=== PATIENT | male | born 1940 | race African-American/Black ===

== ENCOUNTER 2023-08-03 15:44 | Inpatient (IN) | payer MEDICARE, OTHER, SELFPAY ==
--- NOTE | 2023-08-03 13:42 | ED.GENMED ---
History of Present Illness
General
Chief Complaint: Chest Problem
Source: patient
Exam Limitations: altered mental status and dementia
Time Seen by Provider: 08/03/23 13:25
Nursing documentation reviewed up to this point in time: agreed with
Travel History
Have you had any contact with someone who has COVID-19?: No
Do you have any symptoms of coronavirus? Fever > 100 degrees, chills, cough, shortness of breath, sore throat, loss of taste or smell, muscle aches, or headache?: No
History of Present Illness
History of Present Illness:
83-year-old male [facility] presents with fatigue slow heart rate onset unclear, he has a pacemaker, concerned that he has heart block, patient is unsure what his pacemaker was placed, states he feels short of breath states he has chest pain
for the past year denies passing out
Past History
Past History
ED Past Medical History: CAD, Hypercholesterolemia, Psychiatric (Depression, Schizo affective disorder) and Other (Chronic pain, Alzehimers, UTi, COVID)
ED Past Surgical History: Cardiac (Pacemaker)
Social History
Tobacco: Non-smoker
Alcohol: None
Drug: None
Living: [facility] ([place])
Employment: Not employed
Review of Systems
Review of Systems
All Other Systems: Not applicable
Constitutional: Reports fatigue; Denies fever
Respiratory: Reports trouble breathing; Denies cough
Cardiac: Reports chest pain; Denies syncope
ABD/GI: Reports no symptoms
: Reports no symptoms
Neurological: Reports weakness
Hematologic/Lymphatic: Reports no symptoms
Phy Exam
Physical Exam
Physical Exam:
Physical Exam
General: Pleasant demented elderly male
Neck: Lips are slightly dry
Heart: Regular pacer pack in the anterior chest wall
Lungs: no acute respiratory distress. clear bilaterally
Abdomen: Nontender
Neuro: Oriented to person globally weak moves all extremity
Skin: no rash
Psychiatric: Calm cooperative
Extremities: no edema.
Course
Orders/Labs/Results
Orders:
Orders
08/03/23 13:25
EKG [Electrocardiogram (*1)] Urgent
Reason for Study: Chest Pain
EKG- Treatment ONCE
08/03/23 13:27
Electrocardiogram (*1) Stat
Reason for Study: Other
Other Reason for Exam: chest pain
Cardiac Monitoring- Treatment ONCE
EKG- Treatment ONCE
CR Chest Portable - 1 View Urgent
Comment:
Reason For Exam: weakness hr 39
Reason Study Needs to be Portable: Unable to Transport
08/03/23 13:48
Complete Blood Count/With Diff Urgent
Comprehensive Metabolic Panel Urgent
Magnesium Urgent
PTT Urgent
Prothrombin Time Urgent
TSH Urgent
Troponin I Urgent
08/03/23 14:16
CARDIOLOGY CONSULT Urgent
Consulting Provider: Donald Soni
Was physician already notified: Yes
NSS 1000mL Bolus WIDE OPEN 0.9% Sodium Chloride 1000 ml [Nss] 1,000 ml IV BOLUS
Abnormal Lab Results
08/03/23
13:48
RBC 3.74 L 10^6/uL
(4.70-6.10)
Hgb 10.5 L g/dL
(13.0-18.0)
Hct 30.6 L %
(39.0-52.0)
RDW 15.1 H %
(11.5-14.5)
Abs Immat Gran (auto) 0.1 H 10^3/uL
(0-0.05)
Absolute Neuts (auto) 8.2 H 10^3/uL
(1.4-6.5)
Absolute Lymphs (auto) 1.1 L 10^3/uL
(1.2-3.4)
Absolute Monos (auto) 0.9 H 10^3/uL
(0.1-0.6)
Immature Gran % 0.6 H %
(0-0.5)
Neutrophils % 79.9 H %
(42.2-75.2)
Lymphocytes % 10.5 L %
(20.5-51.1)
BUN 37 H mg/dl
(9-20)
Creatinine 1.9 H mg/dL
(0.7-1.3)
Glucose 105 H mg/dl
(70-99)
Magnesium 2.7 H mg/dl
(1.6-2.3)
Alkaline Phosphatase 132 H U/L
(38-126)
Albumin 3.3 L g/dl
(3.5-5.0)
08/03/23 13:48
08/03/23 13:48
Vital Signs
Initial and Last Documented VS:
Initial Vital Signs
Temp Pulse Resp Pulse Ox
98.1 F 41 16 95
08/03/23 13:26 08/03/23 13:26 08/03/23 13:26 08/03/23 13:26
Last Documented Vital Signs
Temp Pulse Resp BP Pulse Ox
98.1 F 40 20 117/41 96
08/03/23 13:26 08/03/23 13:45 08/03/23 13:45 08/03/23 14:00 08/03/23 13:45
MDM/Problems Addressed
Differential Diagnosis Includes:
Dehydration pacemaker failure occult infection
MDM/Problems Addressed:
Fatigue
Chronic conditions affecting care: Cardiomyopathy, Arrhythmia and Psychiatric illness
Acute Exacerbation and/or Progression of Chronic Illness: Cardiomyopathy, Arrhythmia and Psychiatric illness
*Radiology
Radiology exam reviewed: radiology read reviewed
*Pulse Oximetry
Patient hypoxic: no
*EKG
Interpreted by ED Provider?: Yes
Interpretation: abnormal
Comparison EKG: no comparison EKG present
Heart Rate: 40
Rate: bradycardiac
Ischemia: non-specific ST changes
*Electromechanical Assembly Technician Interpretation
Rate: bradycardiac
Interpretation: abnormal
Heart Rate: 42
Rhythm: other
*Critical Care Note
Total Time (30-74mins, 75-104mins- exclusive of procedures): 15
Data Reviewed
Review of Other/Old Records Reveals: Labs and Discharge Summary
Source: patient and ambulance crew
Prescriptions/Medications Considered But Not Given:
Atropine
Update Note
Update Note:
Patient with multiple vague complaints including fatigue and weakness looks to be heart block reviewed with EP cardiology concern for battery failure plan will be to admit to the medicine team, medical optimization, will require new generator pack
during this admission
ED Attending Note
-
Portions of this chart may have been created with voice recognition software.� Occasional wrong word or��sound alike� substitutions may have occurred due to the inherent limitations of voice recognition software.
Discharge Plan
Departure
Patient Disposition: Admit
Date of Disposition: 08/03/23
Time of Disposition: 14:20
Admit to: IVU
Presentation/result/management discussed w/ accepting MD/DO: Hospitalist
Condition: Fair
Covid-19: Not Applicable
Discharge Problem:
Pacemaker failure, Acute renal failure (ARF)
Prescriptions:
No Action
aspirin 81 MG tablet,delayed release (DR/EC)
81 mg PO DAILY
multivitamin with folic acid [Tab-A-Laurie] 1 TABLET tablet
1 tab PO DAILY
acetaminophen 325 MG tablet
650 mg PO Q6HPRN PRN (Reason: mild pain/temp>100.4)
pravastatin 40 MG tablet
40 mg PO QPM
risperidone 0.25 MG tablet
0.25 mg PO DAILY
melatonin 3 MG tablet
6 mg PO HS
tramadol 50 MG tablet
50 mg PO TIDPRN PRN (Reason: moderate pain)
magnesium hydroxide 30 ML suspension
30 ml PO DAILYPRN PRN (Reason: if no bm x 3 days)
tamsulosin 0.4 MG capsule
0.4 mg PO DAILY
bisacodyl [OneLAX Bisacodyl] 10 MG suppository
10 mg MO DAILYPRN PRN (Reason: if MOM ineffective)
Refresh Classic (PF) 10 DROPS dropperette
1 drops BOTH EYES BID
duloxetine 60 MG capsule,delayed release(DR/EC)
60 mg PO DAILY
mirtazapine [Remeron] 15 mg Tablet
7.5 mg PO HS
polyethylene glycol 3350 [Miralax] 17 gram Powder In Packet
17 g PO DAILY
lidocaine [RectiCare] 5 % Cream
1 applic TOPICAL Q8H PRN (Reason: rectal pain)
Rx Instructions:
apply to anus
Fleet Enema 19-7 gram/118 mL Enema
118 ml MO DAILY PRN (Reason: if dulcolax ineffective)
levofloxacin 750 mg Tablet
750 mg PO DAILY
Balneol Lotion
1 ea TOPICAL DAILY
Rx Instructions:
apply to anus
guaifenesin 600 mg Tablet Extended Release 12hr
600 mg PO BID
Referrals:
Tejas Hernández, DO [Family Provider] -
Interventions
Interventions:
*Risk Screen - Suicide Last Done: 08/03/23 13:30
*General Assessment Last Done: 08/03/23 13:30
*Neglect/Abuse Screening Last Done: 08/03/23 13:30
ED- Fall Risk Assessment Last Done: 08/03/23 14:13
ED- Cardiac Assessment Last Done: 08/03/23 14:12
ED- Pulmonary Assessment Last Done: 08/03/23 14:12
[2023-08-03 13:56] LABS: % Basophils 0.1 % (0-2); % Eosinophils 0.3 % (0-6); % Immature Granulocytes 0.6 % (0-0.5); % Lymphocytes 10.5 % (20.5-51.1); % Monocytes 8.6 % (1.7-9.3); % Neutrophils 79.9 % (42.2-75.2); Absolute Immature Granulocytes 0.1 10^3/uL (0-0.05); Absolute Lymphocytes 1.1 10^3/uL (1.2-3.4); Absolute Monocytes 0.9 10^3/uL (0.1-0.6); Absolute Neutrophils 8.2 10^3/uL (1.4-6.5); Hematocrit 30.6 % (39.0-52.0); Hemoglobin 10.5 g/dL (13.0-18.0); Mean Corp Hgb Conc. 34.3 g/dL (33.0-37.0); Mean Corpuscular Hgb 28.1 pg (27.0-31.0); Mean Corpuscular Volume 81.8 fL (80.0-94.0); Mean Platelet Volume 10.1 fL (7.4-10.4); Nucleated Red Blood Cells % 0 % (-); Platelet Count 262 10^3/uL (130-400); Red Blood Cell Count 3.74 10^6/uL (4.70-6.10); Red Cell Dist. Width 15.1 % (11.5-14.5); White Blood Cell Count 10.3 10^3/uL (4.8-10.8)
[2023-08-03 14:00] VITALS: BP 117/41
[2023-08-03 14:07] LABS: INR 1.45; PT 17.4 Sec (11.4-14.6)
[2023-08-03 14:09] LABS: ALT (SGPT) 17 U/L (0-50); AST (SGOT) 36 U/L (17-59); Albumin 3.3 g/dl (3.5-5.0); Alkaline Phosphatase 132 U/L (38-126); Blood Urea Nitrogen 37 mg/dl (9-20); Carbon Dioxide 26 mmol/L (22-30); Chloride 103 mmol/L (98-107); Glucose 105 mg/dl (70-99); Magnesium 2.7 mg/dl (1.6-2.3); Potassium 4.5 mmol/L (3.5-5.1); Sodium 135 mmol/L (135-145); Total Protein 7.2 g/dl (6.3-8.2); eGFR 34.14
--- NOTE | 2023-08-03 14:10 | CON.CAR ---
Consultation
Consultation Request
Date/Time Consultation Requested: August 03, 2023
Date/Time Consultation Performed: August 03, 2023
Requesting Provider: Dr. Marquez
Performing Provider: Nae
Reason for Consultation: Complete heart block
Medical History
-
Chief Complaint: Complete heart block
History of Present Illness:
Mr. Beltran is a very pleasant 83-year-old male who transfers from his custodial for feeling weak over the past 2 to 3 weeks without dizziness or syncope presyncope. He is noted to be in complete heart block with a right bundle escape at 41
beats a minute and is having ventricular pacing spikes with no apparent capture. His prior ECGs from 2019 and 2020 demonstrate atrial sensing and biventricular pacing and a chest x-ray demonstrates a [employer]olfo generator with a DIESEL RETROFIT DESIGNER�D and
quadripolar LV lead with a right ventricular paced sensed lead and this appears to be In the pocket. I did reach out to our [facility] team and they have a record of his device and I am requesting records on his prior device. Apparently he has not
had the device checked in about 3 years and I have no record in our system of him being implanted here. Unfortunately given his dementia he does not know his prior coke burner and he is his own power of managing attorney and medical decision maker as he
tells me he has no family or children that are left to live. He tells me that he was relatively active until about 3 weeks ago when he noticed profound weakness and had trouble walking around his room. He also noticed and tells me that the device
was beeping for a long period of time although that beeping is stopped for at least a few weeks. He denies any chest pain or pressure.
Past Medical History
Past Medical History: Arrhythmias and CHF
Past Surgical History: Cardiac
Social History
Tobacco: Non-Smoker
Alcohol: None
Drug: None
Personal: Single
Living: Half-Way
Employment: Retired
Family History
Family History: Reviewed & Not Pertinent
Allergies / Home Medications
Allergy/AdvReac Type Severity Reaction Status Date / Time
peanut Allergy Unknown Verified 05/24/22 20:56
Penicillins Allergy Unknown; Verified 05/24/22 20:56
TOLERATES
AMOXICILLIN
AND
PIPERACILLIN/TAZOBACTAM
shellfish derived Allergy Unknown Verified 05/24/22 20:56
Medication Instructions Recorded Confirmed Type
aspirin 81 mg tablet,delayed 81 mg PO DAILY Blood clot 10/19/19 05/24/22 History
release prevention/tx
multivitamin with folic acid 400 1 tab PO DAILY Supplement 10/19/19 05/24/22 History
mcg tablet (Tab-A-Laurie)
acetaminophen 325 mg tablet 650 mg PO Q6HPRN PRN mild 12/01/20 05/24/22 History
pain/temp>100.4
bisacodyl 10 mg rectal suppository 10 mg MN DAILYPRN PRN if MOM 12/01/20 05/24/22 History
(OneLAX Bisacodyl) ineffective
duloxetine 60 mg capsule,delayed 60 mg PO DAILY Mental health 12/01/20 05/24/22 History
release
magnesium hydroxide 400 mg/5 mL 30 ml PO DAILYPRN PRN if no bm x 3 12/01/20 05/24/22 History
oral suspension days
melatonin 3 mg tablet 3 mg PO HS Sleep 12/01/20 05/24/22 History
polyvinyl alcohol-povidone (PF) 1 drops BOTH EYES BID Eye condition 12/01/20 05/24/22 History
1.4 %-0.6 % eye drops in a
dropperette (Refresh Classic (PF))
pravastatin 40 mg tablet 40 mg PO QPM High cholesterol 12/01/20 05/24/22 History
risperidone 0.25 mg tablet 0.25 mg PO DAILY Mental health 12/01/20 05/24/22 History
tamsulosin 0.4 mg capsule 0.4 mg PO DAILY Urinary issue 12/01/20 05/24/22 History
tramadol 50 mg tablet 50 mg PO TIDPRN PRN moderate pain 12/01/20 05/24/22 History
mirtazapine 15 mg tablet (Remeron) 7.5 mg PO HS 05/24/22 05/24/22 History
guaifenesin 600 mg tablet, 600 mg PO BID 08/03/23 08/03/23 History
extended release 12 hr
levofloxacin 750 mg tablet 750 mg PO DAILY 08/03/23 08/03/23 History
lidocaine 5 % topical cream 1 applic topical Q8H PRN rectal 08/03/23 08/03/23 History
(RectiCare) pain
mineral oil-lanolin oil-propylene 1 ea topical DAILY 08/03/23 08/03/23 History
glycol lotion (Balneol lotion)
polyethylene glycol 3350 17 gram 17 g PO DAILY 08/03/23 08/03/23 History
oral powder packet (Miralax)
sodium phosphates 19 gram-7 118 ml MN DAILY PRN if dulcolax 08/03/23 08/03/23 History
gram/118 mL enema (Fleet Enema) ineffective
Review of Systems
-
Unable to obtain full review of systems at this time due to: Dementia
All other systems: Negative unless noted
Constitutional: Fatigue
Respiratory: No Symptoms
Cardiac: No Symptoms
Physical Exam
Vital Signs
Temp Pulse Resp Pulse Ox
98.1 F 41 16 95
08/03/23 13:26 08/03/23 13:26 08/03/23 13:26 08/03/23 13:26
Lab Results
08/03/23 13:48
08/03/23 13:48
Physical Exam
General: No Apparent Distress
HEENT: Normocephalic and Anicteric
Respiratory: Clear
Cardiac: S1/S2 and Regular Rhythm
Breast: Deferred by me
GI: Soft, Non Tender and Non Distended
Rectal: Deferred by Provider
Musculoskeletal: No Clubbing and No Cyanosis
Skin: Warm and Dry
Neuro: Awake, Alert and Oriented
Hematologic/Lymphatic: No Lymphadenopathy
Psych: Calm
Impression / Plan
-
Impression:
Complete heart block associated with weakness
No syncope or presyncope
Apparent SJM BiV ICD
He does have mild to moderate dementia and cannot tell me who his prior coke burner was
Relative cachexia
Life limiting fatigue
History of complicated urinary tract infection
History of left-sided pyelonephritis
History of nephrolithiasis status post lithotripsy
Reported penicillin allergy
Challenge with amoxicillin was successful, and without reaction.
Coronary artery diseaseDyslipidemia
Depression
Chronic pain
Alzheimer's disease/dementia
Recommendations:
-Difficult situation given his limited history as well as apparent generator at complete battery depletion. I did reach out to [facility] and they do have a record of his device. As he has not had any syncope or presyncope and has had symptoms for
approximately 2 to 3 weeks it would suggest that he has a relatively stable escape and he tells me that he is tolerating symptoms when he is in bed or with minimal movement. As this is life limiting and is cut back on his activity would be
reasonable to change his generator and in discussion with him it appears that he is capable of making medical decisions.
-Waiting on labs to review whether he needs any other adjustments or medical therapies
-Will plan n.p.o. after midnight Saturday night and possible generator change on Saturday or Saturday depending upon laboratory work and symptoms. If he has any evidence of significant pauses we would perform the generator change this weekend emergently
-Will follow with you
-Attempt to find and discern all records
Data Reviewed
-
EKG: Tracing Personally Visualized and interpreted
Radiology: Image Personally Visualized and interpreted
Medical Tests (Nuc Med, Echo etc): Report Reviewed by me
Labs: Labs Reviewed by me
Old Records: Reviewed
[2023-08-03 14:20] VITALS: BMI 17.7
[2023-08-03] MEDS: NSS 1000 IV (14:27)
[2023-08-03 14:43] LABS: TSH 1.88 uIU/ml (0.47-4.68)
[2023-08-03 15:00] VITALS: BP 136/45
--- NOTE | 2023-08-03 15:26 | HPS.HSE ---
Addendum entered and electronically signed by Asher Camacho MD 08/03/23 15:59:
I saw and examined the patient.
The IMPLEMENTATION DIRECTOR or PA's note was reviewed and I agree with the note.
Comment: 83-year-old male with past medical history of Alzheimer's, CAD, schizoaffective disorder, hyperlipidemia, left-sided pyelonephritis, nephrolithiasis, depression came to the hospital from [facility] for bradycardia. Patient has been feeling
short of breath from about 2 weeks. Was recently started on levofloxacin for presumed pneumonia. Chest x-ray here without any pneumonia. Will hold off on any antibiotics. Shortness of breath suspect likely secondary to bradycardia due to
complete heart block. Seen by cardiology in the ED who suspect pacemaker battery malfunction. Plan for battery change Saturday or Saturday. Consider dopamine if symptoms persist. Denies any chest pain at this time. Does have elevated creatinine
for which we will check UA, bladder scan. Give fluids.
General:�Cachectic
HEENT:�NormoCephalic and Atraumatic
Respiratory:�Clear and Non Labored Respirations
Cardiac:�Bradycardia and Other (Pacer to left chest wall)
GI:�Soft, Non Tender, Non Distended and Normal Bowel Sounds
Genito-urinary:�Deferred by me
Musculoskeletal:�No Cyanosis and No Edema
Skin:�Warm and Dry
Neuro:�Awake and Alert
Psych:�Calm
I spent a total of 77 minutes with the patient or on the floor. More than 50% of this time involved counseling and coordination of care.
Original Note:
Family Physician
-
Family Physician: Tejas Hernández, DO
Chief Complaint
-
heart problem
History of Present Illness
83-yo male from [facility] presents with fatigue and slow heart rate onset unclear. He has a pacemaker and is unsure why it was placed due to dementia. Patient denies respiratory distress and chest pain. He stated he heard his pacemaker was
beeping a few days ago but it has since stopped. Patient is noted to be in complete heart block with a right bundle escape at 41 beats a minute and is having ventricular pacing spikes with no apparent capture.� His prior ECGs from 2019 and 2020
demonstrate atrial sensing and biventricular pacing and a chest x-ray demonstrates a [employer]ol[employer] generator with a TEMPLER HEAD�D and quadripolar LV lead with a right ventricular paced sensed lead. Cardiology was consulted and plan possible generator change on
Saturday or Saturday depending upon laboratory work and symptoms.
Medical History
Past Medical History
Past Medical History: Reports Arrhythmia, CAD, Dementia, Hypercholesterolemia and Psychiatric (depression)
Past Surgical History: Reports None
Social History
Unable to obtain full social history at this time due to: Dementia
Family History
Family History: Unable to Obtain
Allergies / Home Medications
Allergies reflects when Allergies were last updated in [facility].
Home Medications with original date entered in [facility]
Allergy/Medication List:
Allergies
Allergy/AdvReac Type Severity Reaction Status Date / Time
peanut Allergy Unknown Verified 05/24/22 20:56
Penicillins Allergy Unknown; Verified 05/24/22 20:56
TOLERATES
AMOXICILLIN
AND
PIPERACILLIN/TAZOBACTAM
shellfish derived Allergy Unknown Verified 05/24/22 20:56
Home Medications
aspirin 81 mg tablet,delayed release 81 mg PO DAILY Blood clot prevention/tx 10/19/19
multivitamin with folic acid 400 mcg tablet (Tab-A-Laurie) 1 tab PO DAILY Supplement 10/19/19
acetaminophen 325 mg tablet 650 mg PO Q6HPRN PRN mild pain/temp>100.4 12/01/20
bisacodyl 10 mg rectal suppository (OneLAX Bisacodyl) 10 mg UT DAILYPRN PRN if MOM ineffective 12/01/20
duloxetine 60 mg capsule,delayed release 60 mg PO DAILY Mental health 12/01/20
magnesium hydroxide 400 mg/5 mL oral suspension 30 ml PO DAILYPRN PRN if no bm x 3 days 12/01/20
melatonin 3 mg tablet 6 mg PO HS Sleep 12/01/20
polyvinyl alcohol-povidone (PF) 1.4 %-0.6 % eye drops in a dropperette (Refresh Classic (PF)) 1 drops BOTH EYES BID Eye condition 12/01/20
pravastatin 40 mg tablet 40 mg PO QPM High cholesterol 12/01/20
risperidone 0.25 mg tablet 0.25 mg PO DAILY Mental health 12/01/20
tamsulosin 0.4 mg capsule 0.4 mg PO DAILY Urinary issue 12/01/20
tramadol 50 mg tablet 50 mg PO TIDPRN PRN moderate pain 12/01/20
mirtazapine 15 mg tablet (Remeron) 7.5 mg PO HS 05/24/22
guaifenesin 600 mg tablet, extended release 12 hr 600 mg PO BID 08/03/23
levofloxacin 750 mg tablet 750 mg PO DAILY 08/03/23
lidocaine 5 % topical cream (RectiCare) 1 applic topical Q8H PRN rectal pain 08/03/23
mineral oil-lanolin oil-propylene glycol lotion (Balneol lotion) 1 ea topical DAILY 08/03/23
polyethylene glycol 3350 17 gram oral powder packet (Miralax) 17 g PO DAILY 08/03/23
sodium phosphates 19 gram-7 gram/118 mL enema (Fleet Enema) 118 ml UT DAILY PRN if dulcolax ineffective 08/03/23
Review of Systems
-
Unable to obtain full review of systems at this time due to: Dementia
Physical Exam
Vital Signs
Vital Signs
Temp Pulse Resp BP Pulse Ox
98.1 F 40 20 117/41 96
08/03/23 13:26 08/03/23 13:45 08/03/23 13:45 08/03/23 14:00 08/03/23 13:45
Physical Exam
General: Cachectic
HEENT: NormoCephalic and Atraumatic
Respiratory: Clear and Non Labored Respirations
Cardiac: Bradycardia and Other (Pacer to left chest wall)
GI: Soft, Non Tender, Non Distended and Normal Bowel Sounds
Genito-urinary: Deferred by me
Musculoskeletal: No Cyanosis and No Edema
Skin: Warm and Dry
Neuro: Awake and Alert
Psych: Calm
Laboratory Results
-
08/03/23 13:48
08/03/23 13:48
Laboratory Results
PT 17.4 Sec (11.4-14.6) H 08/03/23 13:48
INR 1.45 08/03/23 13:48
APTT 47.0 Sec (23.4-35.0) H 08/03/23 13:48
Total Bilirubin 1.0 mg/dl (0.2-1.3) 08/03/23 13:48
AST 36 U/L (17-59) 08/03/23 13:48
ALT 17 U/L (0-50) 08/03/23 13:48
Alkaline Phosphatase 132 U/L (38-126) H 08/03/23 13:48
Troponin I 0.020 ng/ml 08/03/23 13:48
Impression/Plan
-
IMPRESSION/PLAN:
Admit to IVU under Hospitalist service
#Bradycardia
#Complete Heart Block
#s/p SJM BiV ICD
-Cardiology consult, plan possible generator change on Saturday or Saturday depending upon laboratory work and symptoms.� If he has any evidence of significant pauses we would perform the generator change this weekend emergently
-Avoid medications causing bradycardia
-Consider Dopamine or Epinephrine if becomes symptomatic
#HLD
-Continue Pravastatin
#Acute Renal Failure
-Given fluids in ED
-Check UA, sodium and osmolarity
-Bladder scan
-Recheck BMP in am
#Dementia/Anxiety/Depression
-Continue Duloxetine
-Continue Risperidone
Full code
DVT Prophylaxis: SQH
[2023-08-03 16:00] VITALS: BP 133/48
[2023-08-03 17:06] VITALS: BMI 16.6
[2023-08-03 17:12] VITALS: BP 146/85
[2023-08-03] MEDS: PRAVACHOL 40 MG PO (18:08)
[2023-08-03 19:28] VITALS: BP 142/48
--- NOTE | 2023-08-03 19:40 | PTCARENOTE ---
Received pt from the ED via stretcher. Pt stood and pivited off the stretcher to the bed. Pt was very weak. Bed alarm placed due to pt's dementia, independence at [facility] and wheel chair use for the past 3 wks.
[2023-08-03] MEDS: HEPARIN 5000 UNITS SC (19:55)
[2023-08-03 21:54] VITALS: BP 149/44
[2023-08-04] VITALS (7 sets, daily range): BP systolic 123–164; BP diastolic 35–42; BMI 16.9
--- NOTE | 2023-08-04 00:17 | PTCARENOTE ---
Pt. forgetful and anxious this shift, needs frequent reminding of why he's in the hospital and what the plan of care is, overall demeanor pleasant. In 3rd degree HB on the monitor, rate 30's-40's, with erratic pacer spikes/non-capturing. Other
vitals stable. Incontinent of urine, pt. able to tell you when he went. Bladder scanned for 113 ml post-void. Offered condom catheter which pt. refused (attempting to collect urine specimen). Will re-attempt.
[2023-08-04 04:52] LABS: % Basophils 0.1 % (0-2); % Eosinophils 1.6 % (0-6); % Immature Granulocytes 0.5 % (0-0.5); % Lymphocytes 20.2 % (20.5-51.1); % Monocytes 9.7 % (1.7-9.3); % Neutrophils 67.9 % (42.2-75.2); Absolute Eosinophils 0.1 10^3/uL (0-0.7); Absolute Lymphocytes 1.6 10^3/uL (1.2-3.4); Absolute Monocytes 0.8 10^3/uL (0.1-0.6); Absolute Neutrophils 5.2 10^3/uL (1.4-6.5); Hematocrit 27.1 % (39.0-52.0); Mean Corp Hgb Conc. 33.2 g/dL (33.0-37.0); Mean Corpuscular Hgb 27.7 pg (27.0-31.0); Mean Corpuscular Volume 83.4 fL (80.0-94.0); Mean Platelet Volume 10.1 fL (7.4-10.4); Nucleated Red Blood Cells % 0 % (-); Platelet Count 243 10^3/uL (130-400); Red Blood Cell Count 3.25 10^6/uL (4.70-6.10); Red Cell Dist. Width 14.6 % (11.5-14.5); White Blood Cell Count 7.7 10^3/uL (4.8-10.8)
--- NOTE | 2023-08-04 05:03 | PTCARENOTE ---
Order to straight cath pt. to collect urine specimen obtained, pt. completely incontinent overnight. Able to do so successfully, 200 ml cloudy idania urine drained, specimen sent.
[2023-08-04 05:06] LABS: Osmolality Urine 442 mOsm/kg (300-900)
[2023-08-04 05:13] LABS: ALT (SGPT) 14 U/L (0-50); AST (SGOT) 31 U/L (17-59); Albumin 2.5 g/dl (3.5-5.0); Alkaline Phosphatase 95 U/L (38-126); Blood Urea Nitrogen 30 mg/dl (9-20); Calcium 8.6 mg/dl (8.4-10.2); Carbon Dioxide 24 mmol/L (22-30); Chloride 106 mmol/L (98-107); Estimated Creatinine Clearance 34 ml/min; Glucose 109 mg/dl (70-99); Potassium 4.3 mmol/L (3.5-5.1); Sodium 136 mmol/L (135-145); Total Bilirubin 0.9 mg/dl (0.2-1.3); Total Protein 5.8 g/dl (6.3-8.2); eGFR 49.25
[2023-08-04 05:35] LABS: Urine Sodium 47 mmol/L (30-90)
[2023-08-04 06:18] LABS: Urine Albumin Trace (Neg - Trace); Urine Bilirubin Negative (Negative); Urine Character Slightly Cloudy (Clear); Urine Color Yellow; Urine Glucose Negative (Negative); Urine Ketone Negative (Negative); Urine Leukocyte 2+ (Negative); Urine Nitrite Negative (Negative); Urine Occult Blood Trace (Negative); Urine Urobilinogen Negative (Neg - 1+); Urine pH 6.5 (5.0-9.0)
[2023-08-04 06:39] LABS: Urine Amorphous Seen; Urine Squamous Cell >30 /LPF (Few); Urine Urothelial Cell >30 /LPF (FEW)
[2023-08-04 06:40] LABS: Urine Bacteria Many (Negative); Urine White Cell >100 /HPF (0-5)
[2023-08-04 08:33] LABS: Glycohemoglobin (HgbA1c) 6.1 % (4.0-5.6)
--- NOTE | 2023-08-04 08:37 | W.PN.CARDCBS ---
Today's Communication / Plan
-
Discussed urinalysis with internal medicine
Follow-up telemetry
Tentative generator change Saturday
Made n.p.o. after midnight
Will follow with you
Impression / Plan
-
Impression:
Complete heart block associated with weakness
No syncope or presyncope
Apparent SJM BiV ICD
He does have mild to moderate dementia and cannot tell me who his prior plastic tool maker was
Relative cachexia
Life limiting fatigue
History of complicated urinary tract infection
History of left-sided pyelonephritis
History of nephrolithiasis status post lithotripsy
Reported penicillin allergy
Challenge with amoxicillin was successful, and without reaction.
Coronary artery diseaseDyslipidemia
Depression
Chronic pain
Alzheimer's disease/dementia
Recommendations:
-Difficult situation given his limited history as well as apparent generator at complete battery depletion. I did reach out to [facility] and they do have a record of his device. As he has not had any syncope or presyncope and has had symptoms for
approximately 2 to 3 weeks it would suggest that he has a relatively stable escape and he tells me that he is tolerating symptoms when he is in bed or with minimal movement. As this is life limiting and is cut back on his activity would be
reasonable to change his generator and in discussion with him it appears that he is capable of making medical decisions. He again reiterates that he would like his generator changed and tentatively we will plan Saturday.
-Renal function is improved although his urinalysis which suggests potential urinary tract infection. Defer to internal medicine but I reached out to internal medicine to consider antibiotic treatment in advance of his generator change.
-Will plan n.p.o. after midnight Saturday night and possible generator change on Saturday or Saturday depending upon laboratory work and symptoms. If he has any evidence of significant pauses we would perform the generator change this weekend emergently
-Will follow with you
-Attempt to find and discern all records
Progress Note - Test And Balance Engineer
Subjective
Date of Service: August 04, 2023
Feels little better today
Objective
Labs:
08/04/23 04:26
08/04/23 04:26
Labs
Hgb 9.0 g/dL (13.0-18.0) L 08/04/23 04:26
Hct 27.1 % (39.0-52.0) L 08/04/23 04:26
Plt Count 243 10^3/uL (130-400) 08/04/23 04:26
PT 17.4 Sec (11.4-14.6) H 08/03/23 13:48
INR 1.45 08/03/23 13:48
APTT 47.0 Sec (23.4-35.0) H 08/03/23 13:48
Sodium 136 mmol/L (135-145) 08/04/23 04:26
Potassium 4.3 mmol/L (3.5-5.1) 08/04/23 04:26
BUN 30 mg/dl (9-20) H 08/04/23 04:26
Creatinine 1.4 mg/dL (0.7-1.3) H 08/04/23 04:26
Glucose 109 mg/dl (70-99) H 08/04/23 04:26
Troponins
08/03/23
13:48
Troponin I 0.020
Vital Signs and I&O:
Vital Signs
Temp Pulse Resp BP Pulse Ox
98.1 F 37 20 130/42 96
08/04/23 08:24 08/04/23 04:17 08/04/23 08:24 08/04/23 04:17 08/04/23 04:16
Vital Signs
Temp Pulse Resp BP Pulse Ox
98.1 F 37 20 130/42 96
08/04/23 08:24 08/04/23 04:17 08/04/23 08:24 02/04/24 04:17 08/04/23 04:16
Intake & Output
08/02/23 08/03/23 08/04/23 08/05/23
06:59 06:59 06:59 06:59
Intake Total 240 / 240
Output Total 200 / 200
Balance 40 / 40
Physical Exam
Physical Exam
HEENT normocephalic atraumatic
Telemetry with heart block
Cor regular
Lungs clear to auscultation bilaterally
Abdomen soft nontender positive bowel sound
Alert and orient x 3 x 3
Nonfocal neurologically
No extremity edema
[2023-08-04] MEDS: ASPIR LOW (ENTERIC COATED) 81 MG PO (09:19)
[2023-08-04] MEDS: HEPARIN 5000 UNITS SC ×2 (09:19→20:02)
[2023-08-04] MEDS: CYMBALTA DELAYED RELEASE 60 MG PO (09:19)
[2023-08-04] MEDS: FLOMAX 0.400000000000000022 MG PO (09:19)
[2023-08-04] MEDS: MIRALAX 17 GRAMS PO (09:21)
--- NOTE | 2023-08-04 12:15 | W.PN.HOSP.TC ---
Today's Communication/Plan
-
Monitor vital signs and see plan
Monitor hemoglobin
Start ceftriaxone
N.p.o. past midnight for possible battery change tomorrow
Monitor renal function
Monitor urine culture
Assessment / Plan
Assessment / Plan
General:�Cachectic
HEENT:�NormoCephalic and Atraumatic
Respiratory:�Clear and Non Labored Respirations
Cardiac:�Bradycardia and Other (Pacer to left chest wall)
GI:�Soft, Non Tender, Non Distended and Normal Bowel Sounds
Genito-urinary:�Deferred by me
Musculoskeletal:�No Cyanosis and No Edema
Skin:�Warm and Dry
Neuro:�Awake and Alert
Psych:�Calm
Bradycardia
#Complete Heart Block
#s/p SJM BiV ICD
-Cardiology following, plan possible generator change on Saturday or Saturday depending upon laboratory work and symptoms.� \\
-Avoid medications causing bradycardia
-Consider Dopamine or Epinephrine if becomes symptomatic
#HLD
-Continue Pravastatin
#Acute kidney injury
-IVF
ua suggestive of UTI; start CFTX; follow cx
-Bladder scan
Mild anemia, suspect anemia of chronic disease
Monitor
#Dementia/Anxiety/Depression
-Continue Duloxetine
-hold Risperidone 2/2 bradycardia
History of complicated urinary tract infection
History of left-sided pyelonephritis
History of nephrolithiasis status post lithotripsy
Relative cachexia
Full code
DVT Prophylaxis: SQH
Anticipated Discharge: > 48 hours
Subjective/Interval History
-
Date of Service: August 04, 2023
denies pain
Objective Data
-
Labs:
Laboratory Results
08/04/23
04:26
WBC 7.7
Hgb 9.0 L
Hct 27.1 L
Plt Count 243
Sodium 136
Potassium 4.3
Chloride 106
Carbon Dioxide 24
BUN 30 H
Creatinine 1.4 H
Glucose 109 H
Calcium 8.6
Total Bilirubin 0.9
AST 31
ALT 14
Alkaline Phosphatase 95
Vital Signs:
Vital Signs
Temp Pulse Resp BP Pulse Ox
98.3 F 37 20 130/42 96
08/04/23 11:55 08/04/23 04:17 08/04/23 11:55 08/04/23 04:17 08/04/23 04:16
I&O
08/03/23 08/04/23 08/05/23
06:59 06:59 06:59
Intake Total 240 / 240
Output Total 200 / 200
Balance 40 / 40
[2023-08-04] MEDS: ROCEPHIN 1000 MG IV (12:25)
[2023-08-04] MEDS: STERILE WATER FOR INJECTION 10 ML IV (12:25)
[2023-08-04] MEDS: PRAVACHOL 40 MG PO (18:28)
--- NOTE | 2023-08-04 23:15 | PTCARENOTE ---
Received pt at handoff. Tele- CHB w/ erratic pacer spikes/non-capturing. HR 30-40s. Assessment noted as documented. Pt forgetful at times. Needs frequent reminding of where he is and why he is in the hospital. No c/o pain/discomfort/sob. Pt aware of
NPO status after midnight. Bed alarm activated. Pt voided cloudy, idania urine in urinal. Educated pt to continue using urinal t/o night. Needs reinforcement. Currently resting in bed; call remy w/in reach.
[2023-08-05] VITALS (12 sets, daily range): BP systolic 101–148; BP diastolic 27–114; BMI 16.8
[2023-08-05] MEDS: CYMBALTA DELAYED RELEASE 60 MG PO (07:53)
[2023-08-05] MEDS: ASPIR LOW (ENTERIC COATED) 81 MG PO (07:53)
[2023-08-05] MEDS: FLOMAX 0.400000000000000022 MG PO (07:53)
[2023-08-05] MEDS: HEPARIN 5000 UNITS SC ×2 (07:54→20:04)
--- NOTE | 2023-08-05 09:08 | W.PN.UPDATE ---
Update Note
Progress Note Update
Called [facility] to try and obtain more of patient's cardiac history, but nursing unable to talk. Talked with general medical secretary receptionist who took my number and offered to try and have nursing call me back later. Of note, no records in [place] or old [facility]
records. [employer] device rep has not information either. I talked to the patient myself and he does not know where device was placed and does not know the names of facilities he has been previously
treated.
Update 0941: Talked with patient's nurse at [facility]. Patient has lived there since 2018. No one is listed under family contact information. No cardiology records or device check records.
[2023-08-05 09:57] LABS: % Basophils 0.3 % (0-2); % Immature Granulocytes 0.6 % (0-0.5); % Monocytes 8.8 % (1.7-9.3); % Neutrophils 66.3 % (42.2-75.2); Absolute Eosinophils 0.1 10^3/uL (0-0.7); Absolute Lymphocytes 1.5 10^3/uL (1.2-3.4); Absolute Monocytes 0.6 10^3/uL (0.1-0.6); Absolute Neutrophils 4.6 10^3/uL (1.4-6.5); Hematocrit 31.5 % (39.0-52.0); Hemoglobin 10.5 g/dL (13.0-18.0); Mean Corp Hgb Conc. 33.3 g/dL (33.0-37.0); Mean Corpuscular Hgb 27.9 pg (27.0-31.0); Mean Corpuscular Volume 83.8 fL (80.0-94.0); Mean Platelet Volume 10.3 fL (7.4-10.4); Nucleated Red Blood Cells % 0 % (-); Platelet Count 277 10^3/uL (130-400); Red Blood Cell Count 3.76 10^6/uL (4.70-6.10); Red Cell Dist. Width 14.8 % (11.5-14.5)
[2023-08-05 10:20] LABS: Blood Urea Nitrogen 20 mg/dl (9-20); Calcium 8.7 mg/dl (8.4-10.2); Carbon Dioxide 25 mmol/L (22-30); Chloride 105 mmol/L (98-107); Estimated Creatinine Clearance 37 ml/min; Glucose 101 mg/dl (70-99); Potassium 4.2 mmol/L (3.5-5.1); Sodium 135 mmol/L (135-145); eGFR 53.84
[2023-08-05] MEDS: STERILE WATER FOR INJECTION 10 ML IV ×2 (11:40→14:37)
[2023-08-05] MEDS: ROCEPHIN 1000 MG IV (12:08)
--- NOTE | 2023-08-05 12:21 | W.PN.HOSP.TC ---
Today's Communication/Plan
-
Monitor vital signs see plan
N.p.o. for possible battery change
Continue with antibiotics
Monitor hemoglobin
Monitor renal function
Assessment / Plan
Assessment / Plan
General:�Cachectic
HEENT:�NormoCephalic and Atraumatic
Respiratory:�Clear and Non Labored Respirations
Cardiac:�Bradycardia and Other (Pacer to left chest wall)
GI:�Soft, Non Tender, Non Distended and Normal Bowel Sounds
Genito-urinary:�Deferred by me
Musculoskeletal:�No Cyanosis and No Edema
Skin:�Warm and Dry
Neuro:�Awake and Alert
Psych:�Calm
Bradycardia
#Complete Heart Block
#s/p SJM BiV ICD
-Cardiology following, plan possible generator change on Saturday or Saturday depending upon laboratory work and symptoms.� \\
-Avoid medications causing bradycardia
-Consider Dopamine or Epinephrine if becomes symptomatic
#HLD
-Continue Pravastatin
#Acute kidney injury
-Slowly improving
ua suggestive of UTI; start CFTX; follow cx
-Bladder scan
Mild anemia, suspect anemia of chronic disease
Monitor
#Dementia/Anxiety/Depression
-Continue Duloxetine
-hold Risperidone 2/2 bradycardia
History of complicated urinary tract infection
History of left-sided pyelonephritis
History of nephrolithiasis status post lithotripsy
Relative cachexia
Full code
DVT Prophylaxis: SQH
Anticipated Discharge: Within 24 hours
Subjective/Interval History
-
Date of Service: August 05, 2023
denies pain
Objective Data
-
Labs:
Laboratory Results
08/05/23
09:41
WBC 7.0
Hgb 10.5 L
Hct 31.5 L
Plt Count 277
Sodium 135
Potassium 4.2
Chloride 105
Carbon Dioxide 25
BUN 20
Creatinine 1.3
Glucose 101 H
Calcium 8.7
Vital Signs:
Vital Signs
Temp Pulse Resp BP Pulse Ox
97.4 F 35 18 148/50 98
08/05/23 07:00 08/05/23 04:00 08/05/23 07:00 08/05/23 03:40 08/05/23 07:00
I&O
08/04/23 08/05/23 08/06/23
06:59 06:59 06:59
Intake Total 240 / 240 220 / 220
Output Total 200 / 200 125 / 125
Balance 40 / 40 95 / 95
--- NOTE | 2023-08-05 12:38 | CM ---
spoke with pt in room, he tells me he lives at [facility] for LTC and would like to return there at time of dc. he is medicare and has a bed hold.
[2023-08-05] MEDS: VANCOCIN 200 IV (14:15)
[2023-08-05] MEDS: AZACTAM 2000 MG IV (14:37)
--- NOTE | 2023-08-05 15:14 | ITS.CL.ICD ---
Microfilm Processor - ICD
Implantable Cardioverter Defibrillator
Procedure Report:
ICD GENERATOR CHANGE REPORT
Date of Procedure: August 05, 2023
Referring bingo caller: Dr. Donald Soni
PROCEDURES:
1. Removal of EMPLOYMENT SPECIALIST/PROGRAM MANAGER-ICD Generator, 2.EMPLOYMENT SPECIALIST/PROGRAM MANAGER- ICD Implant
INDICATION FOR PROCEDURE:
Previously followed elsewhere. Had prior implantation of an [employer] EMPLOYMENT SPECIALIST/PROGRAM MANAGER defibrillator at an outside institution and now presents to [facility] with battery that is completely depleted, incomplete heart block with a slow ventricular escape. He is
referred now for ICD generator change.
'Time-out' was called and confirmed. The patient was prepped and draped in sterile fashion. Lidocaine with epi was used for local anesthesia. An incision was made along the previous incision and the device and leads were carefully dissected from
the pocket. Hemostasis was obtained with electrocautery. The leads were from the device header and tested using an external analyzer. The pocket was liberally irrigated with antibiotic solution. Once testing (see below) showed adequate
and stable function, the leads were connected to the generator header and the leads and generator were placed within the pocket. The pocket was closed in the typical fashion.
EXPLANTED ICD [employer] [id number], serial #[id number] implant date May 05, 2017
IMPLANTED ICD: [employer] [id number] serial #[id number]
EXISTING LEADS:
RA: Medtronic 5076
RV: Magaña [id number]
LV: [employer] [id number]
DEVICE TESTING:
Sensing: RA 2.4 mV, RV no escape
Capture: RA 0.5 V@ 0.4 ms, RV 1.75 V@ 0.4 ms, LV 1.25 V@ 0.4 ms,
Ohms: RA 380, RV 308, LV 410
FINAL PROGRAMMING:
Presley Pacing: DDD 60 - 130 ppm
Tachy parameters:
VF: 188 bpm, ATP while charging, Shock
CONCLUSIONS:
1. Explant of ICD at [facility]
2. Successful implant ICD generator.
3. Normal function of ICD and leads at implant testing.
RECOMMENDATIONS:
Return to hospital floor
Copy to: Dr. Donald Soni
--- NOTE | 2023-08-05 15:23 | W.ICD.CONTRA ---
Post ICD/PULL UP HAND-D
-
History of AR?: No (Pt does not know)
LV Function
Left ventricular function study result?: Not documented
ACEI/ARB/ARNI
Patient already on ACEI/ARB/ARNI: No (no documentation)
Beta-Gary
Patient already on Beta Gary: No (no documentation)
[2023-08-05] MEDS: MIRALAX 17 GRAMS PO (16:00)
--- NOTE | 2023-08-05 16:18 | PTCARENOTE ---
Pt received this am in Complete heart block in the 30's. Pt asymptomatic. Pt returned post pacer generator change at 1530. Left chest dressing dry with pressure dressing intact. Denies any pain at this time. 100% V paced on the monitor.
[2023-08-05] MEDS: PRAVACHOL 40 MG PO (17:00)
[2023-08-05] MEDS: TYLENOL 650 MG PO (20:04)
--- NOTE | 2023-08-05 20:57 | PTCARENOTE ---
assumed care of patient at the change of shift. oriented x3, forgetful. history of dementia. bed alarm for safety. c/o L chest pain at PPM site, Tylenol given, see aug. Vpaced on tele. bp stable. L chest incision, CDI. incontinent of urine. perineal
care completed. patient turn/repositioning in bed by himself. call alberto within reach. calls appropriately.
[2023-08-06] MEDS: TYLENOL 650 MG PO (00:29)
[2023-08-06 03:44] VITALS: BP 134/60
--- NOTE | 2023-08-06 04:12 | PTCARENOTE ---
patient slept well overnight. complete bed/bath completed this morning. VSS. L chest PPM site, intact. no swelling. call alberto within reach. bed alarm on.
[2023-08-06 04:23] LABS: % Basophils 0.2 % (0-2); % Eosinophils 3.3 % (0-6); % Immature Granulocytes 0.3 % (0-0.5); % Lymphocytes 24.1 % (20.5-51.1); % Monocytes 10.9 % (1.7-9.3); % Neutrophils 61.2 % (42.2-75.2); Absolute Eosinophils 0.2 10^3/uL (0-0.7); Absolute Lymphocytes 1.5 10^3/uL (1.2-3.4); Absolute Monocytes 0.7 10^3/uL (0.1-0.6); Absolute Neutrophils 3.9 10^3/uL (1.4-6.5); Hematocrit 28.4 % (39.0-52.0); Hemoglobin 9.7 g/dL (13.0-18.0); Mean Corp Hgb Conc. 34.2 g/dL (33.0-37.0); Mean Corpuscular Hgb 27.9 pg (27.0-31.0); Mean Corpuscular Volume 81.6 fL (80.0-94.0); Nucleated Red Blood Cells % 0 % (-); Platelet Count 267 10^3/uL (130-400); Red Blood Cell Count 3.48 10^6/uL (4.70-6.10); Red Cell Dist. Width 14.8 % (11.5-14.5); White Blood Cell Count 6.3 10^3/uL (4.8-10.8)
[2023-08-06 04:42] LABS: Blood Urea Nitrogen 18 mg/dl (9-20); Calcium 8.9 mg/dl (8.4-10.2); Carbon Dioxide 22 mmol/L (22-30); Chloride 105 mmol/L (98-107); Estimated Creatinine Clearance 43 ml/min; Glucose 101 mg/dl (70-99); Potassium 4.1 mmol/L (3.5-5.1); Sodium 136 mmol/L (135-145); eGFR > 60.00
[2023-08-06] MEDS: HEPARIN 5000 UNITS SC (07:12)
[2023-08-06] MEDS: ASPIR LOW (ENTERIC COATED) 81 MG PO (07:13)
[2023-08-06] MEDS: FLOMAX 0.400000000000000022 MG PO (07:13)
[2023-08-06] MEDS: CYMBALTA DELAYED RELEASE 60 MG PO (07:13)
[2023-08-06] MEDS: MIRALAX 17 GRAMS PO (07:14)
[2023-08-06 07:53] VITALS: BP 110/60
--- NOTE | 2023-08-06 09:06 | W.PN.CARDCBS ---
Today's Communication / Plan
-
D/C back to [facility] today
Appropriate device follow up arranged with [facility]
Impression / Plan
-
PCP: Dr. Hernández
Cardiology: He cannot remember
Impression:
Admitted with complete heart block associated with weakness 08/03/23
s/p [employer] TELEVISION STATION MANAGER-D with complete battery depletion on admission
s/p generator change using Medtronic device 08/05/23
Dementia
Relative cachexia
History of complicated urinary tract infection
History of left-sided pyelonephritis
History of nephrolithiasis status post lithotripsy
Reported penicillin allergy
Challenge with amoxicillin was successful, and without reaction.
Coronary artery disease
Dyslipidemia
Depression
Chronic pain
Alzheimer's disease/dementia
Recommendations:
-Patient is a long-term resident of [facility] and he has memory problems such that he cannot remember where his previous TELEVISION STATION MANAGER-D was installed or what his global professional's name is. Called and talked to his RN at [facility] 08/05/23 and they do not have
the name of a global professional and no records of him seeing a global professional in the 6 years he has lived there.
-[employer] TELEVISION STATION MANAGER-D generator removed and replaced with a Medtronic TELEVISION STATION MANAGER-D generator 08/05/23.
-Appropriate incision check and device monitoring being arranged through [facility].
-No family contact information on chart at nor at [facility] when I called 08/05/23.
-Patient is stable for d/c to home at [facility] 08/06/23
Progress Note - Foreclosure Home Inspector
Subjective
Date of Service: August 06, 2023
He feels well and wants to go back to [facility]
Objective
Labs:
08/06/23 03:49
08/06/23 03:49
Labs
Hgb 9.7 g/dL (13.0-18.0) L 08/06/23 03:49
Hct 28.4 % (39.0-52.0) L 08/06/23 03:49
Plt Count 267 10^3/uL (130-400) 08/06/23 03:49
PT 17.4 Sec (11.4-14.6) H 08/03/23 13:48
INR 1.45 08/03/23 13:48
APTT 47.0 Sec (23.4-35.0) H 08/03/23 13:48
Sodium 136 mmol/L (135-145) 08/06/23 03:49
Potassium 4.1 mmol/L (3.5-5.1) 08/06/23 03:49
BUN 18 mg/dl (9-20) 08/06/23 03:49
Creatinine 1.1 mg/dL (0.7-1.3) 08/06/23 03:49
Glucose 101 mg/dl (70-99) H 08/06/23 03:49
Troponins
08/03/23
13:48
Troponin I 0.020
Vital Signs and I&O:
Vital Signs
Temp Pulse Resp BP Pulse Ox
99 F 96 20 110/60 97
08/06/23 03:41 08/06/23 08:00 08/06/23 03:41 08/06/23 07:53 08/06/23 07:39
Vital Signs
Temp Pulse Resp BP Pulse Ox
99 F 96 20 110/60 97
08/06/23 03:41 08/06/23 08:00 08/06/23 03:41 08/06/23 07:53 08/06/23 07:39
Intake & Output
08/04/23 08/05/23 08/06/23 08/07/23
06:59 06:59 06:59 06:59
Intake Total 240 / 240 220 / 220 450 / 450
Output Total 200 / 200 125 / 125
Balance 40 / 40 95 / 95 450 / 450
Physical Exam
Physical Exam
GEN: NAD. AAO to self only
HEENT: EOMI, MMM
LUNGS: CTA B/L
CV: Left ACW implant site covered in Aquacel dressing that is C/D/I without drainage, swelling or tenderness.
ABD: soft, BS+
EXT: No edema
NEURO: Gross non-focal
SKIN: No rash
[2023-08-06 10:38] VITALS: BP 122/59
--- NOTE | 2023-08-06 11:05 | W.PN.HOSP.TC ---
Today's Communication/Plan
-
Monitor vital signs and see plan
Discharge today
Restart statin
Patient follows cardiology outpatient
Change antibiotics to oral
Time of discharge 38 minutes
Assessment / Plan
Assessment / Plan
General:�Cachectic
HEENT:�NormoCephalic and Atraumatic
Respiratory:�Clear and Non Labored Respirations
Cardiac:�Bradycardia and Other (Pacer to left chest wall)
GI:�Soft, Non Tender, Non Distended and Normal Bowel Sounds
Genito-urinary:�Deferred by me
Musculoskeletal:�No Cyanosis and No Edema
Skin:�Warm and Dry
Neuro:�Awake and Alert
Psych:�Calm
Bradycardia
#Complete Heart Block
#[employer] FAMILY MEDICINE CHAIR-D generator removed and replaced with a Medtronic FAMILY MEDICINE CHAIR-D generator 08/05/23.
-Cardiology following, plan possible generator change on Saturday or Saturday depending upon laboratory work and symptoms.� \\
-Restart risperidone since now has placement of battery
Patient will follow with cardiology outpatient
#HLD
-Continue Pravastatin
#Acute kidney injury
-Slowly improving
ua suggestive of UTI; switch antibiotic to cefdinir
-Bladder scan
Mild anemia, suspect anemia of chronic disease
Monitor
#Dementia/Anxiety/Depression
-Continue Duloxetine
Restart risperidone
History of complicated urinary tract infection
History of left-sided pyelonephritis
History of nephrolithiasis status post lithotripsy
Relative cachexia
Full code
DVT Prophylaxis: SQH
Anticipated Discharge: Today
Subjective/Interval History
-
Date of Service: August 06, 2023
Denies pain
Objective Data
-
Labs:
Laboratory Results
08/06/23
03:49
WBC 6.3
Hgb 9.7 L
Hct 28.4 L
Plt Count 267
Sodium 136
Potassium 4.1
Chloride 105
Carbon Dioxide 22
BUN 18
Creatinine 1.1
Glucose 101 H
Calcium 8.9
Vital Signs:
Vital Signs
Temp Pulse Resp BP Pulse Ox
98.0 F 90 18 122/59 96
08/06/23 10:38 08/06/23 10:38 08/06/23 10:38 08/06/23 10:38 08/06/23 10:38
I&O
08/05/23 08/06/23 08/07/23
06:59 06:59 06:59
Intake Total 220 / 220 450 / 450
Output Total 125 / 125 100 / 100
Balance 95 / 95 450 / 450 -100 / -100
--- NOTE | 2023-08-06 11:12 | W.DCSUMMARY ---
Discharge Summary
Discharge Data
Date of Admission: 08/03/23
Date of Discharge: 08/06/23
-
Pending Results: No
Hospital Course
83-year-old male with past medical history of dementia, anxiety, depression, complicated urinary tract infection, left-sided pyelonephritis, nephro lithiasis status post lithotripsy, [employer] DENTAL ASSISTING INSTRUCTOR defibrillator came to the hospital from [facility]
secondary to bradycardia. Patient was in complete heart block on admission and was seen by cardiology. Patient did not had any records of his defibrillator on admission. Cardiology determined that patient symptoms are likely from completely
depleted defibrillator battery. Patient underwent generator change on 08/05/2023. Patient symptoms over time improved after new battery. On this hospitalization patient also had urinary tract infection which was treated with antibiotics. Once
patient symptoms improved he was then discharged with instructions to follow-up with all his physicians outpatient.
Discharge Plan
-
Patient Disposition: Other
Discharge Diagnosis/Procedures: Complete heart block secondary to pacemaker battery depletion status post ICD generator change
Urinary tract infection
Diet: As tolerated
Activity: With assistance and As tolerated
Driving Restrictions: No driving for 24 hours
Stand Alone Forms: [facility] - Implanted Device
Referrals:
[facility] [Provider Group] - 08/12/23 9:00 am (Post device incision check appointment)
Tejas Hernández DO [Family Provider] - in less than 1 week
Prescriptions:
New
cefdinir 300 mg capsule
300 mg PO BID Qty: 10 0RF
Continued
aspirin 81 MG tablet,delayed release (DR/EC)
81 mg PO DAILY
multivitamin with folic acid [Tab-A-Laurie] 1 TABLET tablet
1 tab PO DAILY
acetaminophen 325 MG tablet
650 mg PO Q6HPRN PRN (Reason: mild pain/temp>100.4)
pravastatin 40 MG tablet
40 mg PO QPM
risperidone 0.25 MG tablet
0.25 mg PO DAILY
melatonin 3 MG tablet
6 mg PO HS
tramadol 50 MG tablet
50 mg PO TIDPRN PRN (Reason: moderate pain)
magnesium hydroxide 30 ML suspension
30 ml PO DAILYPRN PRN (Reason: if no bm x 3 days)
tamsulosin 0.4 MG capsule
0.4 mg PO DAILY
bisacodyl [OneLAX Bisacodyl] 10 MG suppository
10 mg KY DAILYPRN PRN (Reason: if MOM ineffective)
Refresh Classic (PF) 10 DROPS dropperette
1 drops BOTH EYES BID
duloxetine 60 MG capsule,delayed release(DR/EC)
60 mg PO DAILY
mirtazapine [Remeron] 15 mg Tablet
7.5 mg PO HS
polyethylene glycol 3350 [Miralax] 17 gram Powder In Packet
17 g PO DAILY
lidocaine [RectiCare] 5 % Cream
1 applic TOPICAL Q8H PRN (Reason: rectal pain)
Rx Instructions:
apply to anus
Fleet Enema 19-7 gram/118 mL Enema
118 ml KY DAILY PRN (Reason: if dulcolax ineffective)
Balneol Lotion
1 ea TOPICAL DAILY
Rx Instructions:
apply to anus
guaifenesin 600 mg Tablet Extended Release 12hr
600 mg PO BID
Discontinued
levofloxacin 750 mg Tablet
750 mg PO DAILY
Discharge Orders:
Discharge Patient (As Directed); Ordered 08/06/23
Ordered By: Asher Camacho
Care Plan Goals
Care Plan Goals:
Problem: Readiness for enhanced knowledge related to diagnosis and treatment plan
Goal: Understand your diagnosis and treatment plan needs, including medications if applicable.
Instructions: Know your diagnosis, underlying causes and treatment plan options, including medications if applicable. Consult with your health care team to learn about your diagnosis and treatment plan, including medications if applicable.
Discharge Date and Time
Discharge Date/Time: 08/06/23 16:08
[2023-08-06] MEDS: STERILE WATER FOR INJECTION 10 ML IV (11:34)
[2023-08-06] MEDS: ROCEPHIN 1000 MG IV (11:34)
--- NOTE | 2023-08-06 14:57 | CM ---
pt for transfer back to [facility], he is a permanent resident. pt agreeable to this plan.
--- NOTE | 2023-08-06 16:08 | PTCARENOTE ---
Pt with no c/o of any pain today. Left chest pacer site clean and dry with aqucell dressing intact. Pressure dressing removed this am. OOB with the walker and 1 assist to the chair and the bathroom. Pt discharged back to [facility] via ambulance.
Report called to nurse receiving pt at facility.
== END 2023-08-06 16:08 | DRG 245 ==
LOC: IVU 15:44
PROVIDERS: Internal Medicine Cardiovascular Disease; Nurse Practitioner; ADMITTING PHYSICIAN Internal Medicine; CONSULT PHYSICIAN Internal Medicine Cardiovascular Disease; EMERGENCY PHYSICIAN Emergency Medicine; FAMILY PHYSICIAN Internal Medicine
PROC: 0JH608Z Insertion of Defibrillator Generator into Chest Subcutaneous Tissue and Fascia, Open Approach (ICD-10-PCS; 2023-08-05)
PROC: 0JPT0PZ Removal of Cardiac Rhythm Related Device from Trunk Subcutaneous Tissue and Fascia, Open Approach (ICD-10-PCS; 2023-08-05)
DX: I44.2 Atrioventricular block, complete (principal); F02.A4 Dementia in other diseases classified elsewhere, mild, with anxiety; F02.A3 Dementia in other diseases classified elsewhere, mild, with mood disturbance; R64 Cachexia; N17.9 Acute kidney failure, unspecified; N39.0 Urinary tract infection, site not specified; Z68.1 Body mass index [BMI] 19.9 or less, adult; Z45.02 Encounter for adjustment and management of automatic implantable cardiac defibrillator; R00.1 Bradycardia, unspecified; G30.9 Alzheimer's disease, unspecified; F25.9 Schizoaffective disorder, unspecified; F32.A Depression, unspecified; I25.10 Atherosclerotic heart disease of native coronary artery without angina pectoris; D63.8 Anemia in other chronic diseases classified elsewhere; G89.29 Other chronic pain; E78.00 Pure hypercholesterolemia, unspecified; Z87.01 Personal history of pneumonia (recurrent); Z87.442 Personal history of urinary calculi; Z79.82 Long term (current) use of aspirin
CPT/HCPCS: 33264; 71045; 80048; 80053; 81003; 81015; 83036; 83735; 83935; 84300; 84443; 84484; 85025; 85610; 85730; 87070; 87086; 93005; 96360; 99285; 99406; C1882

== ENCOUNTER 2023-09-23 13:06 | Emergency (ER) | payer MEDICARE, OTHER, SELFPAY ==
[2023-09-23 13:07] VITALS: BMI 18.7
[2023-09-23 13:15] VITALS: BP 113/60
[2023-09-23 13:28] LABS: % Basophils 0.6 % (0-2); % Eosinophils 4.2 % (0-6); % Immature Granulocytes 0.2 % (0-0.5); % Lymphocytes 27.9 % (20.5-51.1); % Monocytes 8.6 % (1.7-9.3); % Neutrophils 58.5 % (42.2-75.2); Absolute Eosinophils 0.2 10^3/uL (0-0.7); Absolute Lymphocytes 1.5 10^3/uL (1.2-3.4); Absolute Monocytes 0.5 10^3/uL (0.1-0.6); Absolute Neutrophils 3.2 10^3/uL (1.4-6.5); Hematocrit 35.3 % (39.0-52.0); Hemoglobin 11.4 g/dL (13.0-18.0); Mean Corp Hgb Conc. 32.3 g/dL (33.0-37.0); Mean Corpuscular Hgb 27.8 pg (27.0-31.0); Mean Corpuscular Volume 86.1 fL (80.0-94.0); Nucleated Red Blood Cells % 0 % (-); Platelet Count 243 10^3/uL (130-400); Red Cell Dist. Width 15.7 % (11.5-14.5); White Blood Cell Count 5.4 10^3/uL (4.8-10.8)
[2023-09-23 13:38] LABS: ALT (SGPT) 11 U/L (0-50); AST (SGOT) 24 U/L (17-59); Albumin 3.4 g/dl (3.5-5.0); Alkaline Phosphatase 71 U/L (38-126); Blood Urea Nitrogen 13 mg/dl (9-20); Carbon Dioxide 28 mmol/L (22-30); Chloride 100 mmol/L (98-107); Estimated Creatinine Clearance 44 ml/min; Glucose 132 mg/dl (70-99); Potassium 4.2 mmol/L (3.5-5.1); Sodium 135 mmol/L (135-145); Total Bilirubin 0.3 mg/dl (0.2-1.3); Total Protein 6.6 g/dl (6.3-8.2); eGFR 59.26
--- NOTE | 2023-09-23 13:38 | ED.GENMED ---
History of Present Illness
<Nancy Bright PA-C - Last Filed: 09/23/23 18:40>
General
Chief Complaint: Chest Pain
Source: patient
Exam Limitations: none
Time Seen by Provider: 09/23/23 13:35
Nursing documentation reviewed up to this point in time: agreed with
Travel History
Have you had any contact with someone who has COVID-19?: No
Do you have any symptoms of coronavirus? Fever > 100 degrees, chills, cough, shortness of breath, sore throat, loss of taste or smell, muscle aches, or headache?: No
History of Present Illness
History of Present Illness:
83-year-old male with past medical history of Alzheimer's dementia, CAD, hyperlipidemia, pacemaker in place presenting emergency department today with left-sided chest pain, cough, body aches for past 2 weeks. Patient states he also has associated
sore throat, and pain with swallowing. Patient states that [facility]. Patient was discharged from the hospital on August 06 for heart block and concurrent urinary tract infection. Patient was then renal
failure at that time. Patient states that he has been smoking cigarettes daily for many years and is concerned about possible lung cancer. Patient states that he is also had fevers and chills at home. Patient denies abdominal pain, nausea,
vomiting, diarrhea. Patient denies dysuria.
Past History
<Nancy Bright PA-C - Last Filed: 09/23/23 18:40>
Past History
ED Past Medical History: CAD, Hypercholesterolemia, Psychiatric (Depression, Schizo affective disorder) and Other (Chronic pain, Alzehimers, UTi, COVID)
ED Past Surgical History: Cardiac (Pacemaker)
Social History
Tobacco: Non-smoker
Alcohol: None
Drug: None
Living: correction ([place])
Employment: Not employed
Review of Systems
<Nancy Bright PA-C - Last Filed: 09/23/23 18:40>
Review of Systems
All Other Systems: ROS reviewed and negative except as documented in HPI and ROS
Phy Exam
<Nancy Bright PA-C - Last Filed: 09/23/23 18:40>
Physical Exam
Physical Exam:
Vitals: Vital signs are stables
General: Patient is well appearing and in no acute distress
Head: Atraumatic, normocephalic
Skin: Warm and dry, no rashes or lesions
Cardiac: Regular rate and rhythm, no murmurs, no tenderness to palpation of the external chest wall
Pulm: Normal respiratory effort, lung guerrero clear bilaterally, no wheezes, rales, or rhonchi
Abdomen: No tenderness to palpation, no organomegaly, no rebound tenderness
Neuro: CN II-XII intact. No focal neurologic deficits.
Scores
<Nancy Bright PA-C - Last Filed: 09/23/23 18:40>
Heart Score for Chest Pain Patients
STEMI patient?: No
History: Slightly or Non-Suspicious
ECG: Normal
Age: >/= 65 years
Risk Factors: >/= 3 Risk Factors or History of CAD
Troponin: </= Normal Limit
Heart Score for Chest Pain Patients: 4
Heart Score Risk: 20.3% MACE over next 6 weeks
<Jorge Courtney MD - Last Filed: 09/23/23 21:17>
Heart Score for Chest Pain Patients
Heart Score for Chest Pain Patients: 4
Heart Score Risk: 20.3% MACE over next 6 weeks
Course
<Nancy Bright PA-C - Last Filed: 09/23/23 18:40>
Orders/Labs/Results
Orders:
Orders
09/23/23 13:11
Electrocardiogram (*1) Urgent
Reason for Study: Chest Pain
EKG- Treatment ONCE
IV Insert/Care/Rem.- Treatment PRN
09/23/23 13:14
COVID-19 Antigen Urgent
Source: Nasal Swab
Complete Blood Count/With Diff Urgent
Comprehensive Metabolic Panel Urgent
Troponin I Urgent
Influenza A+B Rapid Molecular Urgent
ADITYA Source: Nasal Swab
Specimen Description:
09/23/23 13:46
CR Chest - 2 Views Urgent
Comment:
Reason For Exam: left sided chest pain
09/23/23 15:18
D-Dimer Urgent
09/23/23 16:16
CT Chest Pe Study Urgent
Comment:
Reason For Exam: shortness of breath
Abnormal Lab Results
09/23/23 09/23/23
13:14 15:18
RBC 4.10 L 10^6/uL
(4.70-6.10)
Hgb 11.4 L g/dL
(13.0-18.0)
Hct 35.3 L %
(39.0-52.0)
MCHC 32.3 L g/dL
(33.0-37.0)
RDW 15.7 H %
(11.5-14.5)
D-Dimer 3.05 H ug/mlFEU
(0.00-0.50)
Glucose 132 H mg/dl
(70-99)
Albumin 3.4 L g/dl
(3.5-5.0)
SARS-CoV-2 Antigen Positive A
(Negative)
09/23/23 13:14
09/23/23 13:14
Vital Signs
Initial and Last Documented VS:
Initial Vital Signs
Resp
16
09/23/23 13:07
Last Documented Vital Signs
Temp Pulse Resp BP Pulse Ox
36.7 C 97 20 121/79 98
09/23/23 19:14 09/23/23 19:14 09/23/23 19:14 09/23/23 19:14 09/23/23 19:14
<Jorge Courtney MD - Last Filed: 09/23/23 21:17>
Orders/Labs/Results
Orders:
Orders
09/23/23 13:11
Electrocardiogram (*1) Urgent
Reason for Study: Chest Pain
EKG- Treatment ONCE
IV Insert/Care/Rem.- Treatment PRN
09/23/23 13:14
COVID-19 Antigen Urgent
Source: Nasal Swab
Complete Blood Count/With Diff Urgent
Comprehensive Metabolic Panel Urgent
Troponin I Urgent
Influenza A+B Rapid Molecular Urgent
ADITYA Source: Nasal Swab
Specimen Description:
09/23/23 13:46
CR Chest - 2 Views Urgent
Comment:
Reason For Exam: left sided chest pain
09/23/23 15:18
D-Dimer Urgent
09/23/23 16:16
CT Chest Pe Study Urgent
Comment:
Reason For Exam: shortness of breath
Abnormal Lab Results
09/23/23 09/23/23
13:14 15:18
RBC 4.10 L 10^6/uL
(4.70-6.10)
Hgb 11.4 L g/dL
(13.0-18.0)
Hct 35.3 L %
(39.0-52.0)
MCHC 32.3 L g/dL
(33.0-37.0)
RDW 15.7 H %
(11.5-14.5)
D-Dimer 3.05 H ug/mlFEU
(0.00-0.50)
Glucose 132 H mg/dl
(70-99)
Albumin 3.4 L g/dl
(3.5-5.0)
SARS-CoV-2 Antigen Positive A
(Negative)
09/23/23 13:14
09/23/23 13:14
Vital Signs
Initial and Last Documented VS:
Initial Vital Signs
Resp
16
09/23/23 13:07
Last Documented Vital Signs
Temp Pulse Resp BP Pulse Ox
36.7 C 97 20 121/79 98
09/23/23 19:14 09/23/23 19:14 09/23/23 19:14 09/23/23 19:14 09/23/23 19:14
<Nancy Bright PA-C - Last Filed: 09/23/23 18:40>
MDM/Problems Addressed
Differential Diagnosis Includes:
Differentials include upper respiratory infection, pneumonia, pulmonary embolism, pulmonary carcinoma, ACS, pleurisy
MDM/Problems Addressed:
chest pain, cough, cold
Chronic conditions affecting care: HTN and Neurological disorder (dementia)
Acute Exacerbation and/or Progression of Chronic Illness: HTN and Neurological disorder (dementia)
<Nancy Bright PA-C - Last Filed: 09/23/23 18:40>
*Radiology
Radiology exam reviewed: preliminary read by ED provider (no acute cardiopulmonary process on CXR)
*Pulse Oximetry
Patient hypoxic: no
*Critical Care Note
Total Time (30-74mins, 75-104mins- exclusive of procedures): Not Applicable
Data Reviewed
Review of Other/Old Records Reveals: Records (Reviewed ER physician documentation from 08/03/2023, 05/20/2022, 04/08/2022) and Discharge Summary (reviewed discharge summary from 08/06/2023)
Source: patient and records
<Nancy Bright PA-C - Last Filed: 09/23/23 18:40>
Patient Management
Escalation/DeEscalation of care consider admission/obs:
83-year-old male with past medical history of Alzheimer's dementia, CAD, hyperlipidemia, pacemaker in place presenting emergency department today with left-sided chest pain, cough, body aches for past 2 weeks. On exam, patient appears to have a
very thin body habitus. His lungs are clear bilaterally. He is no reproduction of his chest pain on exam. His EKG demonstrates a functioning pacemaker, and his troponin is normal. His CBC and CMP are unremarkable. Due to pleuritic nature of
pain, and clear chest x-ray, D-dimer was obtained which was elevated at 3.4. CT of the chest was negative for PE but did demonstrate pulmonary nodule. Patient does have a history of daily smoking. Called patient's correction who will follow-up
on the findings of patient's provider, patient made aware of these findings. Patient stable for discharge back to his correction. I suspect his pain is likely pleurisy as a result of bronchitis or emphysematous changes. No need for admission
for observation or repeat troponin at this time
<Nancy Bright PA-C - Last Filed: 09/23/23 18:40>
Update Note
Update Note:
D-dimer elevated at 3.05, will obtain CT PE study
6:04 pm--Spoke to patient's nurse regarding ER course and CT findings of pulmonary nodule. Patient's nurse will make patient's physician aware, notified nurse that follow up PET/CT scan recommended. [facility] aware of COVID positive status.
ED Attending Note
<Nancy Bright PA-C - Last Filed: 09/23/23 18:40>
-
Portions of this chart may have been created with voice recognition software.� Occasional wrong word or��sound alike� substitutions may have occurred due to the inherent limitations of voice recognition software.
<Jorge Courtney MD - Last Filed: 09/23/23 21:17>
ED Attending Note
Patient seen and examined by attending physician: Yes
ED Attending Note:
HPI: 83-year-old male with history as documented notable for dementia, CAD who presents to the emergency room from [facility] for evaluation of chest pain. Apparently has been complaining of chest pain for the past 2 weeks on the left side. He
says he has been coughing and has had some generalized achiness. Was sent in today for assessment.
ROS: Limited due to dementia but patient does admit to some left-sided chest pain on review of systems; denies shortness of breath to me, denies feeling nauseated or having abdominal pain
Physical exam:
General: Awake, alert, not in distress
Head: Normocephalic, atraumatic
Eyes: Conjunctiva normal, sclera anicteric
Throat: Airway intact, handling secretions
Neck: Trachea midline, supple without meningismus
Lungs: Clear to auscultation bilaterally, no wheezing, rales, rhonchi
Heart: Regular rate and rhythm, no murmurs, gallops, or rubs
Abd: Soft, non distended, nontender
Neuro: No gross deficits
Skin: no rash
Extremities: Warm and well-perfused
Differential diagnosis: Pleurisy, PE, pneumonia, pneumothorax, ACS, pericarditis 83-year-old male with a history of dementia presents with 2 weeks of left-sided chest pain, cough, body aches.
Medical decision makin-year-old male presents with 2 weeks of chest pain, cough, myalgias. Vitals normal. Exam as above. EKG paced. Labs sent off including a CBC which showed marginal anemia, CMP which showed no clinically significant
abnormalities. Troponin undetectable x 1 with consistent symptoms for 2 weeks this is sufficient to rule out acute coronary syndrome. His chest x-ray showed no pneumothorax or pneumonia. He did have a D-dimer sent that was positive and so he was
sent for CTA which showed no PE; there was a nodule/mass in the lung which was concerning for potential malignancy and will require close outpatient follow-up. His COVID swab was positive and suspect likely he has bronchitis from COVID and some
pleurisy. No clear indication for admission he has been observed here with stable vital signs. PA discussed with correction staff and we will follow-up on incidental findings from CTA chest.
Chronic conditions affecting care: Dementia
Acute exacerbation or progression of chronic illness: N/A
History source: Patient, ambulance, correction
Data reviewed: Prior labs and imaging
Medications/testing considered: N/A
Social determinants of health: [facility] resident
Discussion with other providers: [facility] staff
Discharge Plan
Departure
Patient Disposition: Home (Routine Discharge)
Date of Disposition: 09/23/23
Time of Disposition: 18:18
Patient with high blood pressure during this ER visit?: Yes
Condition: Good
Discharge Problem:
COVID-19
Instructions: Chest Pain That Is Not Caused by the Heart (DC), COVID-19 (DC), BLOOD PRESSURE
Prescriptions:
No Action
aspirin 81 MG tablet,delayed release (DR/EC)
81 mg PO DAILY
multivitamin with folic acid [Tab-A-Laurie] 1 TABLET tablet
1 tab PO DAILY
acetaminophen 325 MG tablet
650 mg PO Q6HPRN PRN (Reason: mild pain/temp>100.4)
pravastatin 40 MG tablet
40 mg PO QPM
risperidone 0.25 MG tablet
0.25 mg PO DAILY
melatonin 3 MG tablet
6 mg PO HS
tramadol 50 MG tablet
50 mg PO TIDPRN PRN (Reason: moderate pain)
magnesium hydroxide 30 ML suspension
30 ml PO DAILYPRN PRN (Reason: if no bm x 3 days)
tamsulosin 0.4 MG capsule
0.4 mg PO DAILY
bisacodyl [OneLAX Bisacodyl] 10 MG suppository
10 mg ND DAILYPRN PRN (Reason: if MOM ineffective)
Refresh Classic (PF) 10 DROPS dropperette
1 drops BOTH EYES BID
duloxetine 60 MG capsule,delayed release(DR/EC)
60 mg PO DAILY
mirtazapine [Remeron] 15 mg Tablet
7.5 mg PO HS
polyethylene glycol 3350 [Miralax] 17 gram Powder In Packet
17 g PO DAILY
lidocaine [RectiCare] 5 % Cream
1 applic TOPICAL Q8H PRN (Reason: rectal pain)
Rx Instructions:
apply to anus
Fleet Enema 19-7 gram/118 mL Enema
118 ml ND DAILY PRN (Reason: if dulcolax ineffective)
Balneol Lotion
1 ea TOPICAL DAILY
Rx Instructions:
apply to anus
guaifenesin 600 mg Tablet Extended Release 12hr
600 mg PO BID
cefdinir 300 mg capsule
300 mg PO BID Qty: 10 0RF
Referrals:
Tejas Hernández, [Family Provider] -
Activity Restrictions/Additional Instructions:
Today, you tested positive for COVID-19, viral infection. Please stay well-hydrated and get plenty of rest.
Your CT scan of your chest revealed a pulmonary nodule, as well as a opacity. This will require a PET/CT scan follow-up or follow-up with pulmonology. Her nurse was made aware of this finding and will notify your provider.
Please return emergency department should you experience any acute worsening of your symptoms, shortness of breath, back pain, confusion, weakness, dizziness, or other concerning signs or symptoms
Interventions
Interventions:
*Risk Screen - Suicide Last Done: 09/23/23 13:07
*General Assessment Last Done: 09/23/23 13:07
*Neglect/Abuse Screening Last Done: 09/23/23 13:07
ED- Fall Risk Assessment Last Done: 09/23/23 19:14
*ED COVID-19 Vaccine History Last Done: 09/23/23 13:07
*Nursing Disposition Last Done: 09/23/23 19:41
ED- Cardiac Assessment Last Done: 09/23/23 19:14
Discharge Date and Time
Discharge Date/Time: 09/23/23 19:42
[2023-09-23 13:40] LABS: COVID-19 Antigen Positive (Negative)
[2023-09-23 13:48] LABS: Troponin I < 0.012 ng/ml
[2023-09-23 15:18] VITALS: BP 122/63
[2023-09-23 16:00] VITALS: BP 120/62
[2023-09-23 16:14] LABS: D-Dimer 3.05 ug/mlFEU (0.00-0.50)
[2023-09-23 17:07] VITALS: BP 126/64
[2023-09-23 18:00] VITALS: BP 145/72
--- NOTE | 2023-09-23 18:26 | EDRN ---
Report given to HIWOT Sahu @ [facility] who states she is this pts nurse there. HIWOT Sahu states that she was made aware of all findings by our ED PA Nancy. No further questions. awaiting transport ETA.
[2023-09-23 19:14] VITALS: BP 121/79
--- NOTE | 2023-09-30 10:25 | OID.L.PAT ---
Pulmonary Nodule Pat Letter
- -
09/30/23
LEONARD SKINNER
[address] [place], [place] [address]Dottie
[facility]
[place], [place]
Tj VALLE,
A pulmonary nodule was seen on an imaging study done by [facility] Radiology. This was reviewed by the [facility] Pulmonary Nodule Advisory Board and the following recommendation was made:
Recommendation: PET/CT - now and follow up with a Equipment Hire Manager
If you have any questions, please do not hesitate to contact your primary care physician. If you are in need of a Physician, you can go to [email or web address] and click on 'Find a Provider'. Type 'Family Medicine' in the search.
Oncology Nurse Navigator
[facility]
[phone]
--- NOTE | 2023-09-30 10:25 | OID.L.REC ---
Pulmonary Nodule Follow Up
- Recommendation
09/30/23
Pulmonary Nodule Review Recommendations
Your patient, LEONARD SKINNER, had a pulmonary nodule seen on an imaging study done on 09/23/23 in the [facility] Emergency Room.
This was reviewed by the [facility] Pulmonary Nodule Advisory Board and the following recommendation was made:
Recommendation: PET/CT - now and follow up with a Senior Systems Architect
If you have any questions please do not hesitate to contact us.
Sincerely,
Oncology Nurse Navigator
[facility]
[phone]
== END 2023-09-23 19:42 | disposition home or self-care (01) ==
LOC: EMR 13:06
PROVIDERS: EMERGENCY PHYSICIAN Emergency Medicine; FAMILY PHYSICIAN Internal Medicine
DX: U07.1 COVID-19 (principal); I10 Essential (primary) hypertension; F02.83 Dementia in other diseases classified elsewhere, unspecified severity, with mood disturbance; E78.00 Pure hypercholesterolemia, unspecified; Z95.0 Presence of cardiac pacemaker
CPT/HCPCS: 99285; 71046; 71275; 80053; 84484; 85025; 85379; 87502; 87811; 93005; Q9967

== ENCOUNTER 2024-06-24 17:40 | Inpatient (IN) | payer MEDICARE, OTHER, SELFPAY ==
[2024-06-24] VITALS (10 sets, daily range): BP systolic 100–139; BP diastolic 50–99; BMI 19.6; BMI 19.8
[2024-06-24 13:31] LABS: % Basophils 0.3 % (0-2); % Eosinophils 1.3 % (0-6); % Immature Granulocytes 0.4 % (0-0.5); % Lymphocytes 15.7 % (20.5-51.1); % Monocytes 8.4 % (1.7-9.3); % Neutrophils 73.9 % (42.2-75.2); Absolute Eosinophils 0.1 10^3/uL (0-0.7); Absolute Immature Granulocytes 0.1 10^3/uL (0-0.05); Absolute Lymphocytes 1.8 10^3/uL (1.2-3.4); Absolute Monocytes 0.9 10^3/uL (0.1-0.6); Absolute Neutrophils 8.2 10^3/uL (1.4-6.5); Hematocrit 35.8 % (39.0-52.0); Hemoglobin 11.3 g/dL (13.0-18.0); Mean Corp Hgb Conc. 31.6 g/dL (33.0-37.0); Mean Corpuscular Hgb 26.5 pg (27.0-31.0); Mean Corpuscular Volume 83.8 fL (80.0-94.0); Mean Platelet Volume 9.7 fL (7.4-10.4); Nucleated Red Blood Cells % 0 % (-); Platelet Count 235 10^3/uL (130-400); Red Blood Cell Count 4.27 10^6/uL (4.70-6.10); Red Cell Dist. Width 17.9 % (11.5-14.5); White Blood Cell Count 11.1 10^3/uL (4.8-10.8)
[2024-06-24] MEDS: TYLENOL/FEVERALL 650 MG RECTAL (13:36)
[2024-06-24] MEDS: NSS 500 IV (13:43)
[2024-06-24 13:47] LABS: ALT (SGPT) 12 U/L (0-50); AST (SGOT) 23 U/L (17-59); Alkaline Phosphatase 102 U/L (38-126); Blood Urea Nitrogen 23 mg/dl (9-20); Calcium 9.3 mg/dl (8.4-10.2); Carbon Dioxide 29 mmol/L (22-30); Chloride 102 mmol/L (98-107); Estimated Creatinine Clearance 32 ml/min; Glucose 125 mg/dl (70-99); Lactic Acid 2.4 mmol/L (0.7-2.0); Potassium 4.5 mmol/L (3.5-5.1); Sodium 141 mmol/L (135-145); Total Bilirubin 0.6 mg/dl (0.2-1.3); eGFR 38.78
[2024-06-24 14:28] LABS: COVID-19 Antigen Negative (Negative)
--- NOTE | 2024-06-24 15:27 | ED.GENMED ---
History of Present Illness
General
Chief Complaint: Change in Mental Status
Source: patient
Exam Limitations: dementia
Time Seen by Provider: 06/24/24 13:22
History of Present Illness
History of Present Illness:
84-year-old male with history of dementia presents with acute change in mental status. Patient comes from [facility]. Apparently was aggressive. He also has had a mild cough and temperature was 1 or 2.2 on arrival. Patient is unable to
contribute significant to his own history but states he has complaints of pain. No reported fall. History of schizoaffective disorder.
Past History
Past History
ED Past Medical History: CAD, Hypercholesterolemia, Psychiatric (Depression, Schizo affective disorder) and Other (Chronic pain, Alzehimers, UTi, COVID)
ED Past Surgical History: Cardiac (Pacemaker)
Social History
Tobacco: Non-smoker
Alcohol: None
Drug: None
Living: longterm ([place])
Employment: Not employed
Phy Exam
Physical Exam
Physical Exam:
CONSTITUTIONAL Vital signs reviewed, Patient alert and oriented to person. Febrile
HEAD atraumatic, normocephalic.
EYES eyelids normal to inspection, Extraocular muscles intact, Conjunctiva normal, Sclera normal.
NECK normal range of motion, Trachea midline, no jugular venous distention.
RESP no respiratory distress, diminished at bilateral bases
Abdomen no distention
BACK No obvious deformities
UPPER EXTREMITY Gross Range of motion normal, gross motor strength normal
LOWER EXTREMITY Gross range of motion normal, Gross motor strength normal
NEURO Speech normal, No focal motor deficits include, Cranial Nerves intact to screening exam.
SKIN Skin warm, dry, and normal in color.
PSYCHIATRIC Patient oriented to person
Sepsis
Sepsis Screening
Sepsis Assessment: Severe Sepsis
Sepsis Screening: Lactate >2mmol/L
Sepsis Screen
Sepsis Screen: Severe Sepsis
Date: 06/28/24
Time: 18:06
Course
Orders/Labs/Results
Orders:
Orders
06/24/24 13:20
Complete Blood Count/With Diff Urgent
Comprehensive Metabolic Panel Urgent
Lactic Acid Urgent
Blood Culture Urgent
ADITYA Source: Blood/Venous
Specimen Description:
06/24/24 13:24
Acetaminophen [Tylenol/Feverall] 650 mg .ROUTE .STK-MED ONE
06/24/24 13:35
Acetaminophen [Tylenol/Feverall] 650 mg RECTAL NOW STA
06/24/24 13:42
COVID-19 Antigen Urgent
Source: Nasal Swab
Blood Culture Urgent
ADITYA Source: Blood/Venous
Specimen Description:
Influenza A+B Rapid Molecular Urgent
ADITYA Source: Nasal Swab
Specimen Description:
0.9% Sodium Chloride 500 ml [Nss] 500 ml IV BOLUS
06/24/24 13:43
Straight cath- Treatment ONCE
CR Chest - 2 Views Urgent
Comment:
Reason For Exam: fever
06/24/24 Dinner
Full Liquids
At Your Request: Full Participation
Does patient need a safe tray?: No
06/24/24 15:26
Cefepime HCl [Maxipime] 2,000 mg IV NOW STA
MetroNIDAZOLE 500 MG/100 ML [Flagyl 500 mg] 100 ml IV NOW
06/24/24 15:44
Urinalysis Reflex To Culture Urgent
Date Specimen was Collected: 06/24/24
Time Specimen was Collected: 15:42
Urine Microscopic Reflex Cult Urgent
Urine Culture Urgent
ADITYA Source: U
Specimen Description:
Date Specimen was Collected: 06/24/24
Time Specimen was Collected: 15:42
06/24/24 15:59
Vancomycin [Vancocin] 2,000 mg 0.9% Sodium Chloride 500 ml [Nss] 500 ml IV NOW
06/24/24 16:10
Sterile Water [Sterile Water For Injection] 10 ml .ROUTE .STK-MED ONE
06/24/24 17:28
Admit/Transfer Patient As Directed
Co-Sign Provider:
Level of Care: Inpatient admission
Assign to:: Telemetry
Physician / Group: Gregg Morrow
Diagnosis: Sepsis, UTI, PNA
Reason for Telemetry: Arrhythmia
Date to Stop Telemetry: 06/27/24
Time to Stop Telemetry: 11:00
Reason for Hospitalization: Sepsis, UTI, PNA
Expected length of stay greater than two midnights?: Yes
ELOS- Estimated Length of Stay in days: 3
I certify the patient meets the requirements for IP care: Yes
PRN Pain Medication Management As Directed
May give lesser potent ordered pain med per pt: Yes
preference::
Protocol:: Medication orders for pain may be administered in a
manner that supports deferring to patient preference
when the pt is:
- Requesting an ordered lesser potent pain medication.
Least to most potent pain medications are defined
as: acetaminophen < NSAID < tramadol < opioids
(morphine, oxycodone, hydromorphone).
- Requesting a lesser dose of the same medication IF
ORDERED.
- Requesting a less intrusive route of administration
if both routes are prescribed by the provider (PO <
IV).
06/24/24 17:30
Code Status As Directed
Resuscitation Status: Full Code
06/24/24 20:19
Ipratropium/Albuterol Sulfate [Duoneb] 3 ml INH R BID
Lactated Ringers [Lr] 1,000 ml IV 80 mls/hr
Pravastatin Sodium [Pravachol] 40 mg PO QPM
Tramadol HCl [Ultram] 50 mg PO Q12
VANCOMYCIN Pharmacy to Dose [VANCOCIN Pharmacy to Dose] 1 each Pharmacy To Prepare [Call Pharmacy To Prepare] 0 ml IV PER PROTOCOL
06/24/24 20:19
Activity As Directed
Activity Level: With Assistance
Intake/ Output As Directed
Frequency: q12h
Vital Signs As Directed
Frequency: Per unit guidelines
O2 Therapy [RESP] Routine
Titrate/Wean O2 to maintain O2 sat greater than (%): 93
Speech Therapy Eval & Treat Routine
DX Deep Vein Thrombosis Video Routine
06/24/24 21:00
Artificial Tears (Pf) [Refresh Eye Drops (Pf)] 1 drops BOTH EYES BID
06/24/24 22:00
Melatonin 6 mg PO HS
Mirtazapine [Remeron] 7.5 mg PO HS
Pregabalin [Lyrica] 75 mg PO TID
06/24/24 22:07
Lactic Acid Q4H
Comment: repeat q4 hours x 4 or until less than 2 mmol/L
06/25/24 00:00
Heparin 5,000 units SC Q8
06/25/24 08:00
Ferrous Sulfate [Feosol] 325 mg PO DAILY
Multivitamin [Theragran] 1 tablet PO DAILY
Risperidone [Risperdal] 0.25 mg PO DAILY
Tamsulosin [Flomax] 0.4 mg PO DAILY
06/25/24 09:12
Complete Blood Count/No Diff IN AM
Comprehensive Metabolic Panel IN AM
Lactic Acid Q4H
Comment: repeat q4 hours x 4 or until less than 2 mmol/L
06/26/24 08:19
Complete Blood Count/No Diff IN AM
Comprehensive Metabolic Panel IN AM
06/27/24 07:36
Complete Blood Count/No Diff IN AM
Comprehensive Metabolic Panel IN AM
06/27/24 11:00
DC Protocol for Telemetry ONCE
Abnormal Lab Results
06/24/24 06/24/24
13:20 15:44
WBC 11.1 H 10^3/uL
(4.8-10.8)
RBC 4.27 L 10^6/uL
(4.70-6.10)
Hgb 11.3 L g/dL
(13.0-18.0)
Hct 35.8 L %
(39.0-52.0)
MCH 26.5 L pg
(27.0-31.0)
MCHC 31.6 L g/dL
(33.0-37.0)
RDW 17.9 H %
(11.5-14.5)
Abs Immat Gran (auto) 0.1 H 10^3/uL
(0-0.05)
Absolute Neuts (auto) 8.2 H 10^3/uL
(1.4-6.5)
Absolute Monos (auto) 0.9 H 10^3/uL
(0.1-0.6)
Lymphocytes % 15.7 L %
(20.5-51.1)
BUN 23 H mg/dl
(9-20)
Creatinine 1.7 H mg/dL
(0.7-1.3)
Glucose 125 H mg/dl
(70-99)
Lactic Acid 2.4 H mmol/L
(0.7-2.0)
Ur Occult Blood Reflex 1+ A
(Negative)
Leukocyte Esterase Rfl 2+ A
(Negative)
Urine RBC 16-20 A /HPF
(0-2)
Urine WBC (Reflex) 80-90 A /HPF
(0-5)
Urine Bacteria (Reflex) Many A
(Negative)
06/24/24 13:20
06/24/24 13:20
Vital Signs
Initial and Last Documented VS:
Initial Vital Signs
Temp Pulse Resp Pulse Ox
102.2 F H 94 16 87
06/24/24 13:01 06/24/24 13:01 06/24/24 13:01 06/24/24 13:01
Last Documented Vital Signs
Temp Pulse Resp BP Pulse Ox
97.6 F 75 18 128/67 96
06/27/24 15:40 06/27/24 15:40 06/27/24 15:40 06/27/24 15:40 06/27/24 15:40
MDM/Problems Addressed
Differential Diagnosis Includes:
Pneumonia, UTI, electrolyte disturbance, dehydration
MDM/Problems Addressed:
Severe sepsis, UTI, pneumonia, acute kidney injury
*Radiology
Radiology exam reviewed: radiology read reviewed
*Pulse Oximetry
Patient hypoxic: no
*[employer] [place] Interpretation
Rate: tachycardiac
Interpretation: abnormal
Rhythm: sinus
*Critical Care Note
Total Time (30-74mins, 75-104mins- exclusive of procedures): 30 minutes
Data Reviewed
Review of Other/Old Records Reveals: Labs (Prior urine culture reviewed from November 2020)
Source: patient
Patient Management
Discussion with other providers: Hospitalist
Escalation/DeEscalation of care consider admission/obs:
Broad-spectrum antibiotics, gentle IV fluids, continue monitor closely. Does appear much better after fever control in the emergency department.
ED Attending Note
-
Portions of this chart may have been created with voice recognition software.� Occasional wrong word or��sound alike� substitutions may have occurred due to the inherent limitations of voice recognition software.
Discharge Plan
Departure
Patient Disposition: Admit
Date of Disposition: 06/24/24
Time of Disposition: 16:20
Admit to: Telemetry
Presentation/result/management discussed w/ accepting MD/DO: Hospitalist
Discharge Problem:
Severe sepsis, Pneumonia, Acute UTI
Interventions
Interventions:
*General Assessment Last Done: 06/24/24 13:01
*Neglect/Abuse Screening Last Done: 06/24/24 13:01
ED- Fall Risk Assessment Last Done: 06/24/24 14:56
*ED COVID-19 Vaccine History Last Done: 06/24/24 14:55
*Nursing Disposition Last Done: 06/24/24 19:55
ED- Pulmonary Assessment Last Done: 06/24/24 14:56
ED-Psychological Assessment Last Done: 06/24/24 19:58
ED- Neurological Assessment Last Done: 06/24/24 17:30
ED- Cardiac Assessment Last Done: 06/24/24 14:56
ED Swallowing Screen Last Done: 06/24/24 14:56
Discharge Date and Time
Discharge Date/Time: 06/24/24 20:11
[2024-06-24 15:57] LABS: Urine Albumin Trace (Neg - Trace); Urine Bilirubin Negative (Negative); Urine Character Very Cloudy (Clear); Urine Color Yellow; Urine Glucose Negative (Negative); Urine Ketone Negative (Negative); Urine Leukocyte 2+ (Negative); Urine Nitrite Negative (Negative); Urine Occult Blood 1+ (Negative); Urine Urobilinogen Negative (Neg - 1+); Urine pH 6.5 (5.0-9.0)
[2024-06-24 16:11] LABS: Urine Squamous Cell 0-2 /LPF (Few)
[2024-06-24 16:13] LABS: Urine Bacteria Many (Negative); Urine Red Blood Cell 16-20 /HPF (0-2); Urine White Cell 80-90 /HPF (0-5)
[2024-06-24] MEDS: FLAGYL 500 MG 100 IV (16:14)
[2024-06-24] MEDS: MAXIPIME 2000 MG IV (16:30)
[2024-06-24] MEDS: VANCOCIN 540 MG IV (16:41)
--- NOTE | 2024-06-24 16:48 | HPS.HSE ---
Family Physician
-
Family Physician: Tejas Hernández DO
Chief Complaint
-
Change in mental status
History of Present Illness
Patient is a 84-year-old male with past medical history significant for HTN, HLD, Alzehiemer's disease , and depression who presented to [place] ED for evaluation for change in mental status. Patient resides at [facility] and was sent in for
evaluation when he became aggressive with morning rounds/VSS.
Medical History
Past Medical History
Past Medical History: Reports Other
Additional Past Medical History:
HTN
HLD
Alzeheimer's disease
depression
Schizoaffective disorder
Past Surgical History: Reports Other
Additional Past Surgical History:
AICD
Social History
Unable to obtain full social history at this time due to: Dementia
Family History
Family History: Unable to Obtain
Allergies / Home Medications
Allergies reflects when Allergies were last updated in [employer].
Home Medications with original date entered in [employer]
Allergy/Medication List:
Allergies
Allergy/AdvReac Type Severity Reaction Status Date / Time
peanut Allergy Unknown Verified 06/24/24 14:54
Penicillins Allergy Unknown; Verified 06/24/24 14:54
TOLERATES
AMOXICILLIN
AND
PIPERACILLIN/TAZOBACTAM
shellfish derived Allergy Unknown Verified 06/24/24 14:54
Home Medications
acetaminophen 325 mg tablet 650 mg PO Q6HPRN PRN mild pain/temp>100.4 12/01/20
bisacodyl 10 mg rectal suppository (OneLAX Bisacodyl) 10 mg ID DAILYPRN PRN if MOM ineffective 12/01/20
duloxetine 60 mg capsule,delayed release 60 mg PO DAILY Mental health 12/01/20
magnesium hydroxide 400 mg/5 mL oral suspension 30 ml PO [id number] PRN if no bm x 3 days 12/01/20
melatonin 3 mg tablet 6 mg PO HS Sleep 12/01/20
pravastatin 40 mg tablet 40 mg PO QPM High cholesterol 12/01/20
risperidone 0.25 mg tablet 0.25 mg PO DAILY Mental health 12/01/20
tamsulosin 0.4 mg capsule 0.4 mg PO DAILY Urinary issue 12/01/20
tramadol 50 mg tablet 50 mg PO Q12H 12/01/20
lidocaine 5 % topical cream (RectiCare) 1 applic topical Q8HPRN PRN rectal pain 08/03/23
mineral oil-lanolin oil-propylene glycol lotion (Balneol lotion) 1 ea topical DAILY Skin Issues 08/03/23
polyethylene glycol 3350 17 gram oral powder packet (Miralax) 17 g PO DAILY Constipation 08/03/23
sodium phosphates 19 gram-7 gram/118 mL enema (Fleet Enema) 118 ml ID DAILY PRN if dulcolax ineffective 08/03/23
artificial tears(hypromellose) 0.5 % eye drops 1 drp BOTH EYES BID 06/24/24
ferrous sulfate 325 mg (65 mg iron) tablet 325 mg PO DAILY 06/24/24
ipratropium 0.5 mg-albuterol 3 mg (2.5 mg base)/3 mL nebulization soln 3 ml inhalation R BID 06/24/24
methyl salicylate 15 %-menthol 10 % topical cream (Arthritis Hot Pain Relief) 1 applic topical BID bilateral legs 06/24/24
mirtazapine 7.5 mg tablet 7.5 mg PO HS 06/24/24
pregabalin 75 mg capsule (Lyrica) 75 mg PO TID 06/24/24
therapeutic multivitamin 1 tab PO DAILY 06/24/24
Review of Systems
-
Unable to obtain full review of systems at this time due to: Dementia
Physical Exam
Vital Signs
Vital Signs
Temp Pulse Resp BP Pulse Ox
97.8 F 68 23 104/57 95
06/24/24 15:32 06/24/24 16:30 06/24/24 16:30 06/24/24 15:32 06/24/24 16:30
Physical Exam
General: Well Developed, Well Nourished, No Apparent Distress, Comfortable and Conversant
HEENT: NormoCephalic, Moist mucous membranes, Atraumatic, PERRLA, [place] Conjunctivae, Nose Appears Normal and Ears Appear Normal
Respiratory: Clear and Decreased Breath Sounds
Cardiac: S1/S2 and Regular Rhythm; No Murmur or Rub
Breast: Deferred by me
GI: Soft, Non Tender, Non Distended and Normal Bowel Sounds; No Organomegaly
Rectal: Deferred by Provider
Genito-urinary: Deferred by me
Musculoskeletal: No Clubbing, No Cyanosis and No Edema
Skin: Warm and IV/Catheter Site; No Rash
Neuro: Awake, Alert and Nonfocal/grossly intact
Hematologic/Lymphatic: No Lymphadenopathy
Psych: Apparent Dementia
Laboratory Results
-
06/24/24 13:20
06/24/24 13:20
Laboratory Results
Lactic Acid 2.4 mmol/L (0.7-2.0) H 06/24/24 13:20
Total Bilirubin 0.6 mg/dl (0.2-1.3) 06/24/24 13:20
AST 23 U/L (17-59) 06/24/24 13:20
ALT 12 U/L (0-50) 06/24/24 13:20
Alkaline Phosphatase 102 U/L (38-126) 06/24/24 13:20
Data Reviewed
-
Diagnostic Radiology: Report Reviewed by me (CXR: Left basilar infiltrate which is favored to represent pneumonia. Recommend follow-up to ensure resolution.)
Lab Data: Labs Reviewed by me (WBC 11.1, BUN 23, Creat 1.7, Lactic 2.4)
Impression/Plan
-
IMPRESSION/PLAN:
#Sepsis
Aspiration PNA? UTI?
- Admit to telemetry
- IVF
- IV Vanco and Zosyn
- trend Lactic
- Procal Pending
- speech consult
- full liquid diet until seen by speech
#Acute kidney injury
BUN 23, Creat 1.7
- IVF
- follow BMP
#HLD
- continue pravastatin
#HTN
#Alzheimer's disease
#depression
- continue duloxetine, mirtazapine, and risperidone
Code Status: Full Code
DVT Prophylaxis: Heparin Sq
--- NOTE | 2024-06-24 18:01 | W.PN.UPDATE ---
Update Note
Progress Note Update
Admission performed with GRAIN ELEVATOR WORKER/PA-C. Please see formal H&P for further detail when available.
84-year-old male with dementia, HFpEF, HTN, HLD, schizoaffective disorder, nephrolithiasis, CKD 3a, MEENA, BPH, tobacco use, s/p AICD who presented to the ED today with a change in mental status. History was otherwise limited due to his cognitive
status. Upon arrival was febrile at 102.2 �F and required 4 L of supplemental O2 via NC. Otherwise hemodynamically stable. Initial labs with WBC 11.1 with neutrophilic predominance, hemoglobin 11.3, creatinine 1.7, serum lactate 2.4. UA with WBC
80-90, 2+ leukocyte esterase, many bacteria seen. Viral respiratory panel was negative for influenza and COVID. Chest x-ray with blunting of the left costophrenic angle though no obvious consolidation on my prelim read, final read pending. Blood
cultures x 2 and urine culture were obtained in the ED. Started on IV cefepime, vancomycin, metronidazole while in the ED.
On exam he is comfortable, nontoxic-appearing, alert and oriented. Lungs CTA, heart RRR without M/G/R, normal S1 and S2. No leg edema, 2+ pulses. NT/ND/NBS+.
Severe sepsis secondary to suspected UTI versus pneumonia. Cannot rule out aspiration event with SIRS response as history is limited. Does mention having food/fluid go down the wrong pipe, leading to choking. States that this happened within the
last day as well. Will transition antibiotics to IV vancomycin and Zosyn. Patient with penicillin allergy however documented to have tolerated Zosyn in the past. Order Sputum Cx. Will follow-up urine culture and blood cultures, trend CBC and
temperature curve. Will defer against steroid regimen for treatment of severe pneumonia as source of possible infection is still uncertain. Supportive IVF and trend lactate to normal levels. Add on procalcitonin to ED labs
Acute hypoxemic respiratory failure secondary to bacterial pneumonia versus aspiration event. Currently requiring 4 L of supplemental oxygen. Will start bronchodilators and pulmonary toileting. Start aspiration precautions and obtain speech eval.
Full liquid diet until seen by speech. Wean oxygen as able for SpO2 goal >90%
Acute kidney injury likely prerenal etiology. Baseline creatinine 1.2. Will start supportive IV fluids. Avoid nephrotoxic agents such as NSAIDs. Trend daily BMP and urine output.
I have independently evaluated the patient at the bedside in the ED. I will be admitting Giuseppe Beltran to telemetry. He is at high risk for further morbidity due to respiratory failure and sepsis, will require intensive monitoring of his SpO2
and serum lactate levels. I have spoken with the emergency department provider as well as the GRAIN ELEVATOR WORKER/PA-C in order to facilitate this patient's care.
[2024-06-24 20:03] LABS: Procalcitonin 0.17 ng/ml (0.0-0.25)
--- NOTE | 2024-06-24 20:59 | PHA.VAN.IN ---
Assessment
- Assessment
Renal Function: Appears elevated from baseline
Maximum Temperature: 102.2
Minimum Temperature: 97.5
Concomitant Antimicrobials: zosyn 3.375 mg q6h
Plan
- Plan
Initial / Loading Dose: vancomycin 2000 mg x 1
Monitoring: level ordered for 12.26 @ 530 am
MRSA Screen: Ordered per protocol
Pharmacokinetics Vancomycin I
- -
Patient Age: 84
Patient Sex: Male
Vancomycin Day #: 1
Indication: pulmonary
Requesting Provider: Monet Man
Pertinent Antimicrobial Allergies:
PCN
Height / Weight:
Height 6 ft 4 in
Actual Weight 73.595 kg
IBW in k.8 KG
Pertinent Past Medical History: CKD
- Vital Signs / Lab Results
Temp Pulse Resp BP Pulse Ox
97.5 F 73 18 122/54 100
06/24/24 20:23 06/24/24 20:23 06/24/24 20:23 06/24/24 20:23 06/24/24 20:23
Lab Results - Hematology
06/24/24
13:20
WBC 11.1 H
Lab Results - Chemistry
06/24/24
13:20
BUN 23 H
Creatinine 1.7 H
Estimated Creat Clear 32
Albumin 4.0
06/24/24
13:20
Lactic Acid 2.4 H
Lab Results - Urine
06/24/24
15:44
Urine Nitrite (Reflex) Negative
Leukocyte Esterase Rfl 2+ A
Urine WBC (Reflex) 80-90 A
Ur Squamous Epith Cells 0-2
Urine Bacteria (Reflex) Many A
Microbiology Results
06/24/24 13:42 Influenza Types A & B (SALINAS) - Final
Nasal Swab Negative for Influenza A & B, NAAT
Negative results must be combined with clinical observations
and patient history.
Nucleic Acid Amplification test (NAAT)performed on the
[employer] NOW platform.
[2024-06-24] MEDS: DUONEB INH (21:33)
[2024-06-24] MEDS: FLUSH (NSS) 2 FLUSH IV (21:43)
[2024-06-24] MEDS: ZOSYN 50 IV (22:11)
[2024-06-24] MEDS: MELATONIN 6 MG PO (22:26)
[2024-06-24] MEDS: REMERON 7.5 MG PO (22:26)
[2024-06-24] MEDS: REFRESH EYE DROPS (PF) 1 DROPS BOTH EYES (22:27)
[2024-06-24 22:28] LABS: Lactic Acid 1.3 mmol/L (0.7-2.0)
[2024-06-24] MEDS: ULTRAM 50 MG PO (22:28)
[2024-06-24] MEDS: PRAVACHOL 40 MG PO (22:28)
[2024-06-24] MEDS: LYRICA 75 MG PO (22:28)
[2024-06-24] MEDS: HEPARIN 5000 UNITS SC (23:16)
[2024-06-24] MEDS: LR 1000 IV (23:16)
[2024-06-25] VITALS (8 sets, daily range): BP systolic 109–140; BP diastolic 51–68; PULSE 60–64; O2SAT 95–96
[2024-06-25] MEDS: ZOSYN 50 IV ×4 (04:00→21:57)
[2024-06-25] MEDS: FLUSH (NSS) 2 FLUSH IV (04:00)
--- NOTE | 2024-06-25 06:02 | PTCARENOTE ---
Patient rec'd from ED and was pulled to bed by staff. PMH Dementia. Bed alarm in place. IVF, IV ABX at ordered. VSS
[2024-06-25] MEDS: DUONEB 3 ML INH ×2 (07:53→19:16)
--- NOTE | 2024-06-25 09:19 | W.PN.HOSP.TC ---
Today's Communication/Plan
-
Continue antibiotic therapy. Waiting on Cultures. Waiting on Speech Eval before changing diet
Assessment / Plan
Assessment / Plan
Assessment:
84 year old male with a history of dementia, HFpEF, HTN, HLD, schizoaffective disorder, nephrolithiasis, CKD3a, MEENA, BPH, tobacco use, s/p AICD presented to the ED with a change in mental status. Patient was febrile and requiring supplemental oxygen
upon presentation. Patient was found to have severe sepsis secondary to suspected UTI versus pneumonia. He also had Acute hypoexemic respiratory failure secondary to either bacterial pneumonia or aspiration event. He was started on broad spectrum
antibiotic therapy and his condition improved remarkably.
Plan:
#Severe Sepsis secondary to suspected UTI versus pneumonia
-Fever has resolved
-Continue monitoring CBC and temperature
-Continue IV Vancomycin and Zosyn
-Follow Urine/Blood cultures
-Procalcitonin (0.17)
-Lactic acid 2.4 -> 1.3 trending down
#Acute Hypoxemic Respiratory Failure secondary to bacterial pneumonia versus aspiration
-Supplemental oxygen as needed (required 2L during the night)
-Wean off to room air
-Waiting on Speech Eval, Full Liquid Diet until evaluation
-Aspiration precautions
-Follow sputum cultures
#DEJUAN likely prerenal
-Continue IV Fluids
-Monitor BMP and Urine Output- Creatinine (Baseline around 1.2)
-Avoid nephrotoxic agents
#HLD
-continue pravastatin
#HTN
#BPH
-Continue Flomax
#Alzheimer's Disease
#Depression
-continue duloxetine, mirtazapine, and risperidone
Full Code
DVT Prophylaxis- Heparin
Anticipated Discharge: 24 - 48 hours
Subjective/Interval History
-
Date of Service: June 25, 2024
Patient has underlying dementia so not a good source of history. From what little he can communicate, he says that he is feeling much better from yesterday. Nurse says that he had no adverse events over night and is awaiting speech evaluation.
Objective Data
-
Labs:
Laboratory Results
06/25/24
09:12
WBC Pending
Hgb Pending
Hct Pending
Plt Count Pending
Sodium Pending
Potassium Pending
Chloride Pending
Carbon Dioxide Pending
BUN Pending
Creatinine Pending
Glucose Pending
Calcium Pending
Total Bilirubin Pending
AST Pending
ALT Pending
Alkaline Phosphatase Pending
Vital Signs:
Vital Signs
Temp Pulse Resp BP Pulse Ox
97.5 F 60 14 120/51 98
06/25/24 07:30 06/25/24 07:59 06/25/24 07:59 06/25/24 07:30 06/25/24 07:59
I&O
06/24/24 06/25/24 06/26/24
06:59 06:59 06:59
Intake Total 100 / 100 600 / 600
Balance 100 / 100 600 / 600
Review of Systems
-
Unable to obtain full review of systems at this time due to: Dementia
History Source: Patient
Constitutional: Denies Fever or Weakness
EENT: Reports No Symptoms Reported
Respiratory: Denies Cough or Trouble Breathing
Cardiac: Denies Chest Pain
Abdomen/GI: Denies Abdominal Pain, Nausea or Vomiting
Genitourinary: Reports No Symptoms
Musculoskeletal: Reports No Symptoms
Skin: Reports No Symptoms
Neuro: Reports No Symptoms
Endocrine: Reports No Symptoms
Hematologic / Lymphatic: Reports No Symptoms
Allergy / Immunology: Reports No Symptoms
Physical Exam
-
General: No Apparent Distress and Comfortable
HEENT: Normocephalic and Atraumatic
Respiratory: Crackles and Non Labored Respirations
Cardiac: Regular Rhythm (Paced) and S1/S2
GI: Soft, Nontender and Nondistended
Musculoskeletal: No Clubbing, No Cyanosis and No Edema
Skin: Warm
Neuro: Awake and Alert
Psych: Calm and Apparent Dementia
Data Reviewed
-
Diagnostic Radiology: Report Reviewed by me, Discussed with Physician, Discussed with Nurse and Discussed with Patient
Labs: Labs Reviewed by me, Discussed with Physician, Discussed with Nurse and Discussed with Patient
[2024-06-25 09:36] LABS: Lactic Acid 1.5 mmol/L (0.7-2.0)
[2024-06-25 09:41] LABS: Vancomycin Random 13.1 ug/ml
[2024-06-25] MEDS: LYRICA 75 MG PO ×3 (09:47→21:57)
[2024-06-25] MEDS: RISPERDAL 0.25 MG PO (09:47)
[2024-06-25] MEDS: FEOSOL 325 MG PO (09:47)
[2024-06-25] MEDS: THERAGRAN 1 TABLET PO (09:47)
[2024-06-25] MEDS: FLOMAX 0.4 MG PO (09:47)
[2024-06-25] MEDS: REFRESH EYE DROPS (PF) 1 DROPS BOTH EYES ×2 (09:47→21:56)
[2024-06-25] MEDS: HEPARIN 5000 UNITS SC ×3 (09:48→23:27)
[2024-06-25] MEDS: ULTRAM 50 MG PO (09:48)
[2024-06-25 09:55] LABS: Hematocrit 31.9 % (39.0-52.0); Hemoglobin 10.2 g/dL (13.0-18.0); Mean Corpuscular Hgb 26.6 pg (27.0-31.0); Mean Corpuscular Volume 83.3 fL (80.0-94.0); Mean Platelet Volume 9.5 fL (7.4-10.4); Platelet Count 186 10^3/uL (130-400); Red Blood Cell Count 3.83 10^6/uL (4.70-6.10); Red Cell Dist. Width 17.2 % (11.5-14.5); White Blood Cell Count 7.2 10^3/uL (4.8-10.8)
--- NOTE | 2024-06-25 10:00 | PTOTSP ---
Speech Therapy Evaluation:
Pt presents with grossly functional oropharyngeal swallow at bedside, however remains at an increased risk of aspiration and related complications given hx of Dementia, compounded by acute change in mental status. Pt passed 3oz swallow screen. CXR
showed L basilar infiltrate, which was favored to represent pneumonia. MERCHANDISE WORKER will continue to follow given acute on chronic risk factors in addition to suspected pneumonia.
Recommend:
1. IDDSI Level 7 (regular) solids; thin liquids
2. Medications as tolerated
3. Distant supervision with meals
4. General aspiration precautions
5. MERCHANDISE WORKER to follow to monitor tolerance of current diet and determine if VSE appropriate.
[2024-06-25] MEDS: LR 1000 IV (10:17)
[2024-06-25 10:27] LABS: ALT (SGPT) < 10 U/L (0-50); AST (SGOT) 24 U/L (17-59); Albumin 3.3 g/dl (3.5-5.0); Alkaline Phosphatase 86 U/L (38-126); Blood Urea Nitrogen 21 mg/dl (9-20); Calcium 8.9 mg/dl (8.4-10.2); Carbon Dioxide 22 mmol/L (22-30); Chloride 107 mmol/L (98-107); Estimated Creatinine Clearance 37 ml/min; Glucose 75 mg/dl (70-99); Potassium 4.6 mmol/L (3.5-5.1); Sodium 140 mmol/L (135-145); Total Bilirubin 0.7 mg/dl (0.2-1.3); eGFR 45.06
--- NOTE | 2024-06-25 14:31 | CM ---
Addendum entered by Brooklyn Vazquez 06/25/24 15:14:
[facility]
Report: [phone] ((3rd floor nurses station)

Original Note:
CM reviewed chart, patient asleep bedside. Patient LTC resident at [facility]. Per [place] liaison, patient does not ambulate much, can ambulate to bathroom and back to bed using khan/bed for support, otherwise uses wheelchair. Patient
PCP Dr. Hernández, pharmacy [facility] [place]. Per chart, patient likely ready for discharge back to facility within 24-[address] referral in [facility]. CM will continue to follow for all discharge planning needs.
Plan; return to [facility] when stable
[2024-06-25] MEDS: PRAVACHOL 40 MG PO (17:13)
[2024-06-25] MEDS: MELATONIN 6 MG PO (21:56)
[2024-06-25] MEDS: ULTRAM PO ×2 (21:56→22:04)
[2024-06-25] MEDS: REMERON 7.5 MG PO (21:57)
[2024-06-26] MEDS: LR 1000 IV (00:37)
[2024-06-26 03:03] VITALS: BP 121/89
[2024-06-26] MEDS: ZOSYN 50 IV ×4 (03:52→21:26)
[2024-06-26] MEDS: DUONEB 3 ML INH ×2 (07:24→19:31)
[2024-06-26 07:30] VITALS: BP 122/88
[2024-06-26 08:44] LABS: Hematocrit 29.1 % (39.0-52.0); Hemoglobin 9.7 g/dL (13.0-18.0); Mean Corp Hgb Conc. 33.3 g/dL (33.0-37.0); Mean Corpuscular Hgb 26.7 pg (27.0-31.0); Mean Corpuscular Volume 80.2 fL (80.0-94.0); Platelet Count 183 10^3/uL (130-400); Red Blood Cell Count 3.63 10^6/uL (4.70-6.10); Red Cell Dist. Width 16.8 % (11.5-14.5); White Blood Cell Count 7.8 10^3/uL (4.8-10.8)
[2024-06-26 09:02] LABS: ALT (SGPT) < 10 U/L (0-50); AST (SGOT) 33 U/L (17-59); Alkaline Phosphatase 79 U/L (38-126); Blood Urea Nitrogen 17 mg/dl (9-20); Calcium 8.5 mg/dl (8.4-10.2); Carbon Dioxide 23 mmol/L (22-30); Chloride 106 mmol/L (98-107); Estimated Creatinine Clearance 37 ml/min; Glucose 101 mg/dl (70-99); Potassium 3.8 mmol/L (3.5-5.1); Sodium 136 mmol/L (135-145); Total Bilirubin 0.7 mg/dl (0.2-1.3); Total Protein 6.5 g/dl (6.3-8.2); eGFR 45.06
--- NOTE | 2024-06-26 09:21 | W.PN.HOSP.TC ---
Today's Communication/Plan
-
Continue monitoring for any aspiration events with food. Will narrow down antibiotics as cultures come in. May be discharged today back to care facility on oral antibiotics if continues to be stable.
Assessment / Plan
Assessment / Plan
Assessment:
84 year old male with a history of dementia, HFpEF, HTN, HLD, schizoaffective disorder, nephrolithiasis, CKD3a, MEENA, BPH, tobacco use, s/p AICD presented to the ED with a change in mental status. Patient was febrile and requiring supplemental oxygen
upon presentation. Patient was found to have severe sepsis secondary to suspected UTI versus pneumonia. He also had Acute hypoxemic respiratory failure secondary to either bacterial pneumonia or aspiration event. He was started on broad spectrum
antibiotic therapy and his condition improved remarkably.
Plan:
#Severe Sepsis secondary to suspected UTI causing altered mental status
-Fever has resolved mostly (Had an instance of fever overnight 100.5F which resolved)
-Mental status returning to baseline (No more aspiration events)
-Continue monitoring CBC and temperature
-Procalcitonin (0.17)
-Lactic acid 2.4 -> 1.3 trending down
-Discontinued IV Vanc, Continue Zosyn
-Follow Urine/Blood cultures
-history of multiple UTIs caused by a variety of resistant organisms.
-Awaiting cultures and sensitivities before switching antibiotics
#Acute Hypoxemic Respiratory Failure secondary to aspiration
-On Room Air now
-Speech evaluation 06/25->IDDSI Level 7 (regular) solids; thin liquids medications as tolerated, Distant supervision with meals, General aspiration precautions
-Diet was advanced to Regular with thin liquids yesterday. Was able to tolerate with no aspiration events
#DEJUAN likely prerenal
-Continue IV Fluids
-Creatinine at 1.5
-Monitor BMP and Urine Output- Creatinine (Baseline around 1.2)
-Avoid nephrotoxic agents
#HLD
-continue pravastatin
#HTN
#BPH
-Continue Flomax
#Alzheimer's Disease
#Depression
-continue duloxetine, mirtazapine, and risperidone
Full Code
DVT Prophylaxis- Heparin
Anticipated Discharge: Today
Subjective/Interval History
-
Date of Service: June 26, 2024
Patient has been feeling well this morning. He was more alert and responsive and able to have an actual conversation. He was able to tolerate food yesterday with no aspiration event and had no adverse events last night.
Objective Data
-
Labs:
Laboratory Results
06/26/24
08:19
WBC 7.8
Hgb 9.7 L
Hct 29.1 L
Plt Count 183
Sodium 136
Potassium 3.8
Chloride 106
Carbon Dioxide 23
BUN 17
Creatinine 1.5 H
Glucose 101 H
Calcium 8.5
Total Bilirubin 0.7
AST 33
ALT < 10
Alkaline Phosphatase 79
Vital Signs:
Vital Signs
Temp Pulse Resp BP Pulse Ox
98.1 F 76 18 122/88 92
06/26/24 07:30 06/26/24 07:30 06/26/24 07:30 06/26/24 07:30 06/26/24 07:30
I&O
06/25/24 06/26/24 06/27/24
06:59 06:59 06:59
Intake Total 100 / 100 960 / 960
Balance 100 / 100 960 / 960
Review of Systems
-
Unable to obtain full review of systems at this time due to: Dementia
History Source: Patient
Constitutional: Denies Fever, Fatigue, Night Sweats or Chills
EENT: Reports No Symptoms Reported
Respiratory: Denies Cough or Trouble Breathing
Cardiac: Denies Chest Pain, Diaphoresis or Palpitations
Abdomen/GI: Denies Abdominal Pain, Nausea or Vomiting
Genitourinary: Denies Dysuria, Difficulty Voiding or Urgency
Musculoskeletal: Reports No Symptoms
Skin: Reports No Symptoms
Neuro: Reports No Symptoms
Endocrine: Reports No Symptoms
Hematologic / Lymphatic: Reports No Symptoms
Allergy / Immunology: Reports No Symptoms
Physical Exam
-
General: No Apparent Distress, Comfortable and Conversant
HEENT: Normocephalic, Atraumatic and Moist Mucous Membranes
Respiratory: Clear to Auscultation and Non Labored Respirations
Cardiac: Regular Rhythm (paced) and S1/S2
GI: Soft, Nontender and Nondistended
Musculoskeletal: No Clubbing, No Cyanosis and No Edema
Skin: Warm
Neuro: Awake, Alert, Oriented and AO x 3
Psych: Calm and Apparent Dementia
Data Reviewed
-
Labs: Labs Reviewed by me, Discussed with Physician, Discussed with Nurse and Discussed with Patient
[2024-06-26] MEDS: RISPERDAL 0.25 MG PO (10:00)
[2024-06-26] MEDS: LYRICA 75 MG PO ×3 (10:01→21:31)
[2024-06-26] MEDS: HEPARIN 5000 UNITS SC ×2 (10:01→17:40)
[2024-06-26] MEDS: REFRESH EYE DROPS (PF) 1 DROPS BOTH EYES ×2 (10:01→21:25)
[2024-06-26] MEDS: THERAGRAN 1 TABLET PO (10:03)
[2024-06-26] MEDS: FEOSOL 325 MG PO (10:03)
[2024-06-26] MEDS: ULTRAM 50 MG PO ×2 (10:03→21:26)
[2024-06-26] MEDS: FLOMAX 0.4 MG PO (10:05)
[2024-06-26 11:30] VITALS: BP 135/65
--- NOTE | 2024-06-26 11:34 | CM ---
Addendum entered by Brooklyn Vazquez 06/26/24 13:59:
Per Resident- patient not for discharge today- transport canceled. Facility updated.
Addendum entered by Brooklyn Vazquez 06/26/24 11:49:
transport scheduled for 4:00 p.m.
Original Note:
CM reviewed chart, reviewed with Resident, clear for discharge today. Update to [facility] at [facility]. Patient will require ambulance transport. Patient seen bedside, IMM reviewed, patient declined copy. CM will continue to follow for all discharge
planning needs.
Plan; return to [facility] via ambulance, awaiting transport time.
[facility]
Report: [phone] (3rd floor nurses station)
--- NOTE | 2024-06-26 11:43 | PN.CDI ---
CDI
- -
CDI:
Physician Documentation Request
Admit Date: 06/24/24 17:40
Dear Doctor,
Please review the following and provide your response in the progress notes.
Clinical Indicators:
- 06/24 ER Physician indicates patient came in for change in mental status
- per h&P pmh of Alzheimers dementia 'sent in for evaluation when he became aggressive with morning rounds/VSS'
- 06/26 PN 'Severe Sepsis secondary to suspected UTI'
Please clarify in the Progress Notes and Discharge Summary which, if any of the following, is the most likely etiology of the confusion/altered mental status.
Metabolic encephalopathy due to sepsis
Alzheimers dementia with acute delirium
Acute or subacute confusional state due to (specify known or suspected etiology)
Other (please specify)
Use of terms such as suspected, likely, concern for, or probable (associated with a specific diagnosis that is being evaluated, monitored, or treated as if it exists) are acceptable and can be coded in the inpatient setting, when documented at the
time of discharge.
Thank you,
Walter Tolliver RN
CDI Specialist
Please use your independent medical judgment in providing your response.
--- NOTE | 2024-06-26 13:37 | W.DCSUMMARY ---
Discharge Summary
Discharge Data
Date of Admission: 06/24/24
Date of Discharge: 06/27/24
-
Pending Results: Yes
Additional Pending Results:
Blood Cultures
Hospital Course
Discharging Physician : Dr. Gregg Morrow, Dr. Andres Aguilar
Disposition : SNF
Primary care physician : Dr. Tejas Hernández
Principal Discharge diagnosis : Severe Sepsis secondary to suspected UTI causing altered mental status
Chronic Discharge diagnosis : CKD3a, BPH, Dementia, Schizoaffective Disorder, Hypertension, Hyperlipidemia, CHF
Hospital Course :
84-year-old male with a history of dementia, HFpEF, hypertension, hyperlipidemia, schizoaffective disorder, CKD3a, BPH, MEENA, tobacco use s/p AICD presented to the [place] ED from his care facility on 06/24/2024 due to altered mental status.
Patient was febrile and was requiring supplemental oxygen upon presentation. Patient was found to be septic and was started on fluid repletion, broad spectrum antibiotics, and oxygen support therapy. Patient was kept on full liquid diet until seen
by speech as there was suspicion that his acute hypoxemic respiratory failure was secondary to an aspiration event. Patient's urinalysis showed numerous bacteria and leukocytes which confirmed suspicion for UTI that had caused a change in his mental
status. Patient was evaluated by speech and found that he could tolerate regular solids but could only tolerate thin fluids. Patient's condition continued to improve with antibiotics and his mental status appeared to go back to his baseline. Patient
was discharged back to his assisted with oral antibiotics as he continued to be stable.
Important imaging findings :
CR Chest - 2 Views
Left basilar infiltrate which is favored to represent pneumonia. Recommend follow-up to ensure resolution.
Discharge Plan
-
Patient Disposition: [facility]NF
Referrals:
Tejas Hernández, [Family Provider] -
Prescriptions:
No Action
acetaminophen 325 MG tablet
650 mg PO Q6HPRN PRN (Reason: mild pain/temp>100.4)
pravastatin 40 MG tablet
40 mg PO QPM
risperidone 0.25 MG tablet
0.25 mg PO DAILY
melatonin 3 MG tablet
6 mg PO HS
tramadol 50 MG tablet
50 mg PO Q12H
magnesium hydroxide 30 ML suspension
30 ml PO [id number] PRN (Reason: if no bm x 3 days)
tamsulosin 0.4 MG capsule
0.4 mg PO DAILY
bisacodyl [OneLAX Bisacodyl] 10 MG suppository
10 mg SD DAILYPRN PRN (Reason: if MOM ineffective)
duloxetine 60 MG capsule,delayed release(DR/EC)
60 mg PO DAILY
polyethylene glycol 3350 [Miralax] 17 gram Powder In Packet
17 g PO DAILY
lidocaine [RectiCare] 5 % Cream
1 applic TOPICAL Q8HPRN PRN (Reason: rectal pain)
Rx Instructions:
anus
Fleet Enema 19-7 gram/118 mL Enema
118 ml SD DAILY PRN (Reason: if dulcolax ineffective)
Balneol Lotion
1 ea TOPICAL DAILY
Rx Instructions:
anus
ipratropium-albuterol 0.5 mg-3 mg(2.5 mg base)/3 mL Solution For Nebulization
3 ml INHALATION R BID
Theragen Tablet
1 tab PO DAILY
ferrous sulfate 325 mg (65 mg iron) Tablet
325 mg PO DAILY
artificial tears(hypromellose) 0.5 % Drops
1 drp BOTH EYES BID
mirtazapine 7.5 mg Tablet
7.5 mg PO HS
pregabalin [Lyrica] 75 mg Capsule
75 mg PO TID
Arthritis Hot Pain Relief 15-10 % Cream
1 applic TOPICAL BID
Discharge Date and Time
Print Language: IRANIAN
[2024-06-26 15:00] VITALS: BP 131/56
[2024-06-26] MEDS: PRAVACHOL 40 MG PO (17:49)
[2024-06-26 19:00] VITALS: BP 142/66
[2024-06-26] MEDS: MELATONIN 6 MG PO (21:30)
[2024-06-26] MEDS: REMERON 7.5 MG PO (21:31)
[2024-06-26 23:40] VITALS: BP 127/70
[2024-06-27] MEDS: HEPARIN 5000 UNITS SC ×3 (00:19→15:30)
[2024-06-27 03:00] VITALS: BP 122/75
[2024-06-27] MEDS: ZOSYN 50 IV ×3 (03:50→15:30)
[2024-06-27 07:40] VITALS: BP 114/53
[2024-06-27] MEDS: DUONEB 3 ML INH (07:51)
[2024-06-27 08:16] LABS: Hemoglobin 9.8 g/dL (13.0-18.0); Mean Corp Hgb Conc. 32.7 g/dL (33.0-37.0); Mean Corpuscular Hgb 26.6 pg (27.0-31.0); Mean Corpuscular Volume 81.3 fL (80.0-94.0); Platelet Count 202 10^3/uL (130-400); Red Blood Cell Count 3.69 10^6/uL (4.70-6.10); Red Cell Dist. Width 17.1 % (11.5-14.5); White Blood Cell Count 6.1 10^3/uL (4.8-10.8)
[2024-06-27 08:31] LABS: ALT (SGPT) 11 U/L (0-50); AST (SGOT) 32 U/L (17-59); Albumin 3.1 g/dl (3.5-5.0); Alkaline Phosphatase 72 U/L (38-126); Blood Urea Nitrogen 14 mg/dl (9-20); Calcium 8.7 mg/dl (8.4-10.2); Carbon Dioxide 24 mmol/L (22-30); Chloride 104 mmol/L (98-107); Estimated Creatinine Clearance 40 ml/min; Glucose 102 mg/dl (70-99); Potassium 3.8 mmol/L (3.5-5.1); Sodium 138 mmol/L (135-145); Total Bilirubin 0.6 mg/dl (0.2-1.3); Total Protein 6.6 g/dl (6.3-8.2); eGFR 48.95
[2024-06-27] MEDS: FLOMAX 0.4 MG PO (09:40)
[2024-06-27] MEDS: ULTRAM 50 MG PO (09:40)
[2024-06-27] MEDS: THERAGRAN 1 TABLET PO (09:40)
[2024-06-27] MEDS: REFRESH EYE DROPS (PF) 1 DROPS BOTH EYES (09:40)
[2024-06-27] MEDS: LYRICA 75 MG PO ×2 (09:40→15:30)
[2024-06-27] MEDS: FEOSOL 325 MG PO (09:40)
[2024-06-27] MEDS: RISPERDAL 0.25 MG PO (09:41)
[2024-06-27 11:44] VITALS: BP 97/53
--- NOTE | 2024-06-27 14:18 | W.PN.HOSP.TC ---
Today's Communication/Plan
-
Transition to doxycycline to complete 14 days of antibiotics
Discharge back to facility
Assessment / Plan
Assessment / Plan
#Severe Sepsis secondary to suspected UTI causing altered mental status
-Fever has resolved mostly (Had an instance of fever overnight 100.5F which resolved)
-Mental status returning to baseline (No more aspiration events)
-Continue monitoring CBC and temperature
-Procalcitonin (0.17)
-Lactic acid 2.4 -> 1.3 trending down
-Final cultures showed Enterococcus faecalis with sensitivity to tetracyclines
-Transition IV Zosyn to doxycycline to complete 14 days of antibiotic
#Acute Hypoxemic Respiratory Failure secondary to aspiration
-On Room Air now
-Speech evaluation 06/25->IDDSI Level 7 (regular) solids; thin liquids medications as tolerated, Distant supervision with meals, General aspiration precautions
-Diet was advanced to Regular with thin liquids yesterday. Was able to tolerate with no aspiration events
#DEJUAN likely prerenal
-Resolved with IVF
#HLD
-continue pravastatin
#HTN
#BPH
-Continue Flomax
#Alzheimer's Disease
#Depression
-continue duloxetine, mirtazapine, and risperidone
Full Code
DVT Prophylaxis- Heparin
Anticipated Discharge: Today
Subjective/Interval History
-
Date of Service: June 27, 2024
Seen and examined at the bedside. No acute events reported overnight. AFVSS this morning
He appears well, remains without fevers or leukocytosis
Denies any acute complaints today. States he would like to go back to the facility
Objective Data
-
Labs:
Laboratory Results
06/27/24
07:36
WBC 6.1
Hgb 9.8 L
Hct 30.0 L
Plt Count 202
Sodium 138
Potassium 3.8
Chloride 104
Carbon Dioxide 24
BUN 14
Creatinine 1.4 H
Glucose 102 H
Calcium 8.7
Total Bilirubin 0.6
AST 32
ALT 11
Alkaline Phosphatase 72
Vital Signs:
Vital Signs
Temp Pulse Resp BP Pulse Ox
97.2 F 102 18 97/53 96
06/27/24 11:44 06/27/24 11:44 06/27/24 11:44 06/27/24 11:44 06/27/24 11:44
I&O
06/26/24 06/27/24 06/28/24
06:59 06:59 06:59
Intake Total 960 / 960 1180 / 1180
Balance 960 / 960 1180 / 1180
Review of Systems
-
History Source: Patient
All other systems: Reviewed and negative
Physical Exam
-
General: Well Developed, No Apparent Distress, Comfortable and Other (Thin and frail appearing)
HEENT: Normocephalic, Atraumatic, Moist Mucous Membranes and Anicteric
Respiratory: Clear to Auscultation and Non Labored Respirations
Cardiac: Regular Rhythm and S1/S2; Negative Murmur, Rub or Gallop
GI: Soft, Nontender, Nondistended and Normal Bowel Sounds
Musculoskeletal: No Clubbing, No Cyanosis and No Edema
Skin: Warm and Dry; Negative Rash
Neuro: Awake, Alert, Oriented and Nonfocal/Grossly Intact; Negative Tremors
Psych: Calm
Data Reviewed
-
Labs: Labs Reviewed by me, Discussed with Nurse and Discussed with Patient
--- NOTE | 2024-06-27 15:33 | CM ---
Patient for discharge today back to [facility]
Notified Geeta at [facility]
Plan: Discharge to [facility] today
Transportation via ambulance - forms on chart - time TBD
[facility]
Report: [phone] (3rd floor nurses station)
[2024-06-27 15:40] VITALS: BP 128/67
[2024-06-27] MEDS: PRAVACHOL 40 MG PO (17:16)
--- NOTE | 2024-06-28 15:39 | W.DCSUMMARY ---
Discharge Summary
Discharge Data
Date of Admission: 06/24/24
Date of Discharge: 06/27/24
-
Pending Results: No
Hospital Course
84-year-old male with dementia, HLD, bradycardia, s/p AICD for complete heart block, that presented to the hospital with fever, hypotension, tachycardia, hypoxemia and concern for sepsis. Was started on broad-spectrum antibiotics and blood
cultures/urine cultures were obtained. Chest x-ray without evidence of pneumonia. Urinalysis consistent with UTI, patient mention dysuria in the days preceding hospitalization. His respiratory status and fevers ultimately quickly improved and he
was off of oxygen while in the ED. Suspected urinary tract infection with encephalopathy that caused aspiration event. Blood cultures negative on final read. Urine culture was positive for tetracycline sensitive Enterococcus faecalis
Patient had previous urinary tract infections fairly frequently. Multiple different species grown, lower suspicion for prostatitis, though cannot completely rule it out. Previous urine cultures with Enterococcus did show resistance to nicky Meg
Lohnes and other antibiotics. He was kept in the hospital until his urine cultures were finalized with appropriate antibiotic choice. Was transition to doxycycline 100 mg twice daily to complete 14 days of antibiotics in the context of complicated
UTI. Should follow-up with PCP after his discharge from the hospital.
Was seen by speech and swallow, after clinical improvement, who recommended regular diet with thin liquids. Should have consideration for ongoing speech therapy vahe'bryon, does have dementia and may develop issues with dysphagia and aspiration as he
continues to age
Discharge Plan
-
Patient Disposition: Prison/SNF
Discharge Diagnosis/Procedures: Urinary tract infection
Aspiration pneumonitis
Condition: Fair
Diet: No restrictions
Additional Diets: Evaluated by speech here, tolerated regular diet
Activity: As tolerated
Driving Restrictions: As prior to admission
Bathing Restrictions: None
Activity Restrictions/Additional Instructions:
Patient should have follow-up with family doctor/PCP within 1 to 2 weeks of discharge. Should also have periodic speech and swallow evaluation to assess his aspiration risk in the context of dementia
Referrals:
Tejas Hernández, DO [Family Provider] -
Additional Discharge Medication Instructions: Continue doxycycline 100 mg twice daily for 12 more days after discharge
Prescriptions:
New
doxycycline monohydrate 100 mg capsule
100 mg PO BID 12 Days Qty: 24 0RF
Continued
acetaminophen 325 MG tablet
650 mg PO Q6HPRN PRN (Reason: mild pain/temp>100.4)
pravastatin 40 MG tablet
40 mg PO QPM
risperidone 0.25 MG tablet
0.25 mg PO DAILY
melatonin 3 MG tablet
6 mg PO HS
tramadol 50 MG tablet
50 mg PO Q12H
magnesium hydroxide 30 ML suspension
30 ml PO [id number] PRN (Reason: if no bm x 3 days)
tamsulosin 0.4 MG capsule
0.4 mg PO DAILY
bisacodyl [OneLAX Bisacodyl] 10 MG suppository
10 mg IN DAILYPRN PRN (Reason: if MOM ineffective)
duloxetine 60 MG capsule,delayed release(DR/EC)
60 mg PO DAILY
polyethylene glycol 3350 [Miralax] 17 gram Powder In Packet
17 g PO DAILY
lidocaine [RectiCare] 5 % Cream
1 applic TOPICAL Q8HPRN PRN (Reason: rectal pain)
Rx Instructions:
anus
Fleet Enema 19-7 gram/118 mL Enema
118 ml IN DAILY PRN (Reason: if dulcolax ineffective)
Balneol Lotion
1 ea TOPICAL DAILY
Rx Instructions:
anus
ipratropium-albuterol 0.5 mg-3 mg(2.5 mg base)/3 mL Solution For Nebulization
3 ml INHALATION R BID
therapeutic multivitamin Tablet
1 tab PO DAILY
ferrous sulfate 325 mg (65 mg iron) Tablet
325 mg PO DAILY
artificial tears(hypromellose) 0.5 % Drops
1 drp BOTH EYES BID
mirtazapine 7.5 mg Tablet
7.5 mg PO HS
pregabalin [Lyrica] 75 mg Capsule
75 mg PO TID
Arthritis Hot Pain Relief 15-10 % Cream
1 applic TOPICAL BID
Discharge Orders:
Discharge Patient (As Directed); Ordered 06/27/24
Ordered By: Gregg Morrow
Discharge Date and Time
Discharge Date/Time: 06/27/24 18:29
Print Language: RWANDAN
== END 2024-06-27 18:29 | DRG 871 ==
LOC: 4 WEST ACU 17:40
PROVIDERS: Emergency Medicine; Nurse Practitioner Family; ADMITTING PHYSICIAN Internal Medicine; EMERGENCY PHYSICIAN Emergency Medicine; FAMILY PHYSICIAN Internal Medicine
DX: A41.9 Sepsis, unspecified organism (principal); G93.41 Metabolic encephalopathy; J69.0 Pneumonitis due to inhalation of food and vomit; J96.01 Acute respiratory failure with hypoxia; N17.9 Acute kidney failure, unspecified; I13.0 Hypertensive heart and chronic kidney disease with heart failure and stage 1 through stage 4 chronic kidney disease, or unspecified chronic kidney disease; I50.32 Chronic diastolic (congestive) heart failure; F02.83 Dementia in other diseases classified elsewhere, unspecified severity, with mood disturbance; N39.0 Urinary tract infection, site not specified; R65.20 Severe sepsis without septic shock; E78.00 Pure hypercholesterolemia, unspecified; N18.31 Chronic kidney disease, stage 3a; G30.9 Alzheimer's disease, unspecified; F32.A Depression, unspecified; F25.9 Schizoaffective disorder, unspecified; Z11.52 Encounter for screening for COVID-19
CPT/HCPCS: 51701; 71046; 80053; 80202; 81003; 81015; 83605; 84145; 85025; 85027; 87040; 87070; 87077; 87086; 87147; 87186; 87205; 87502; 87811; 92610; 94640; 96361; 96365; 96367; 96375; 97163; 97166; 99285

== ENCOUNTER 2024-07-17 21:13 | Inpatient (IN) | payer MEDICARE, OTHER, SELFPAY ==
[2024-07-17 17:46] VITALS: BP 152/65
[2024-07-17] MEDS: TYLENOL 1000 MG PO (18:05)
[2024-07-17 18:10] LABS: % Basophils 0.2 % (0-2); % Eosinophils 1.2 % (0-6); % Immature Granulocytes 0.3 % (0-0.5); % Lymphocytes 18.5 % (20.5-51.1); % Monocytes 6.4 % (1.7-9.3); % Neutrophils 73.4 % (42.2-75.2); Absolute Eosinophils 0.1 10^3/uL (0-0.7); Absolute Lymphocytes 1.6 10^3/uL (1.2-3.4); Absolute Monocytes 0.6 10^3/uL (0.1-0.6); Absolute Neutrophils 6.3 10^3/uL (1.4-6.5); Hematocrit 36.1 % (39.0-52.0); Hemoglobin 11.1 g/dL (13.0-18.0); Mean Corp Hgb Conc. 30.7 g/dL (33.0-37.0); Mean Corpuscular Hgb 26.7 pg (27.0-31.0); Mean Corpuscular Volume 86.8 fL (80.0-94.0); Mean Platelet Volume 9.9 fL (7.4-10.4); Nucleated Red Blood Cells % 0 % (-); Platelet Count 203 10^3/uL (130-400); Red Blood Cell Count 4.16 10^6/uL (4.70-6.10); White Blood Cell Count 8.6 10^3/uL (4.8-10.8)
--- NOTE | 2024-07-17 18:17 | ED.GENMED ---
History of Present Illness
General
Chief Complaint: Change in Mental Status
Time Seen by Provider: 07/17/24 18:05
History of Present Illness
History of Present Illness:
84-year-old male with history of dementia presents from [facility] facility due to a transient alteration of awareness. He apparently was not responding while eating dinner tonight. Arrives febrile with urine soaked clothing. Unable to
provide further history
Past History
Past History
ED Past Medical History: CAD, Hypercholesterolemia, Psychiatric (Depression, Schizo affective disorder) and Other (Chronic pain, Alzehimers, UTi, COVID)
ED Past Surgical History: Cardiac (Pacemaker)
Social History
Tobacco: Non-smoker
Alcohol: None
Drug: None
Living: residential ([place])
Employment: Not employed
Review of Systems
Review of Systems
Allergies reviewed?: Yes
All Other Systems: ROS reviewed and negative except as documented in HPI and ROS
Phy Exam
Physical Exam
Physical Exam:
GEN:Thin, underweight, NAD
HEENT: Oral mucosa moist, no scleral icterus
Cardiac: Regular rate
Lung: Tachypneic, coarse rhonchi LLL
MSK: No gross deformity or injuries
Skin: Good color, no pallor or jaundice, no rashes
Neuro: Alert, follows commands, pleasantly confused
Psych: Calm, cooperative
Course
Orders/Labs/Results
Orders:
Orders
07/17/24 Dinner
Regular
At Your Request: Limited Participation
07/17/24 17:54
Electrocardiogram (*1) Urgent
Reason for Study: Fatigue / Weakness
07/17/24 17:55
EKG- Treatment ONCE
07/17/24 18:00
Complete Blood Count/With Diff Urgent
Lactic Acid Urgent
Troponin I Urgent
Blood Culture Urgent
ADITYA Source: Blood/Venous
Specimen Description:
07/17/24 18:03
Acetaminophen [Tylenol] 1,000 mg .ROUTE .STK-MED ONE
07/17/24 18:04
Acetaminophen [Tylenol] 1,000 mg PO NOW STA
07/17/24 18:14
CR Chest - 2 Views Urgent
Comment:
Reason For Exam: cough/fever
07/17/24 18:37
0.9% Sodium Chloride 1000 ml [Nss] 1,000 ml IV BOLUS
07/17/24 18:47
COVID-19 Antigen Urgent
Source: Nasal Swab
Influenza A+B Rapid Molecular Urgent
ADITYA Source: Nasal Swab
Specimen Description:
07/17/24 19:28
Comprehensive Metabolic Panel Urgent
Urinalysis Reflex To Culture Urgent
Date Specimen was Collected: 07/17/24
Time Specimen was Collected: 19:05
Urine Microscopic Reflex Cult Urgent
Blood Culture Urgent
ADITYA Source: Blood/Venous
Specimen Description:
Urine Culture Urgent
ADITYA Source: U
Specimen Description:
Date Specimen was Collected: 07/17/24
Time Specimen was Collected: 19:05
07/17/24 19:47
Azithromycin 500 mg/250 ml [Zithromax Infusion] 500 mg in 250 ml IV NOW
CefTRIAXone [Rocephin] 1,000 mg IV NOW STA
07/17/24 20:45
Admit/Transfer Patient As Directed
Co-Sign Provider:
Level of Care: Inpatient admission
Assign to:: Telemetry
Physician / Group: Junie
Diagnosis: Pneumonia
Reason for Telemetry: Arrhythmia
Date to Stop Telemetry: 07/20/24
Time to Stop Telemetry: 11:00
Reason for Hospitalization: IV Abx
Expected length of stay greater than two midnights?: Yes
ELOS- Estimated Length of Stay in days: 3
I certify the patient meets the requirements for IP care: Yes
PRN Pain Medication Management As Directed
May give lesser potent ordered pain med per pt: Yes
preference::
Protocol:: Medication orders for pain may be administered in a
manner that supports deferring to patient preference
when the pt is:
- Requesting an ordered lesser potent pain medication.
Least to most potent pain medications are defined
as: acetaminophen < NSAID < tramadol < opioids
(morphine, oxycodone, hydromorphone).
- Requesting a lesser dose of the same medication IF
ORDERED.
- Requesting a less intrusive route of administration
if both routes are prescribed by the provider (PO <
IV).
07/17/24 20:48
Code Status As Directed
Resuscitation Status: Full Code
07/17/24 21:52
0.9% Sodium Chloride 1000 ml [Nss] 1,000 ml IV 100 mls/hr
Acetaminophen [Tylenol] 650 mg PO Q6HPRN PRN
07/17/24 21:52
Legionella Urinary Antigen Routine
ADITYA Source: Urine
Specimen Description:
Respiratory Culture/Gram Stain Urgent
ADITYA Source: Sputum
Specimen Description:
Strep pneumoniae Antigen Routine
ADITYA Source: Urine
Specimen Description:
Activity As Directed
Activity Level: Out of Bed-Early Mobility
Intake/ Output As Directed
Frequency: Per unit guidelines
Vital Signs As Directed
Frequency: Per unit guidelines
Weight As Directed
Frequency: Daily
O2 Therapy [RESP] Routine
Titrate/Wean O2 to maintain O2 sat greater than (%): 92
Special Instructions: Wean as tolerated
DX Deep Vein Thrombosis Video Routine
07/17/24 22:00
CefTRIAXone [Rocephin] 1,000 mg IV Q24H
Melatonin 6 mg PO HS
Mirtazapine [Remeron] 7.5 mg PO HS
Pregabalin [Lyrica] 75 mg PO TID
07/18/24 06:00
Basic Metabolic Panel IN AM
Complete Blood Count/No Diff IN AM
07/18/24 08:00
Aspirin Chewable [Low Strength Aspirin] 81 mg PO DAILY
Guaifenesin [Mucinex] 600 mg PO Q12
Polyethylene Glycol Powder [Miralax] 17 grams PO DAILY
Risperidone [Risperdal] 0.25 mg PO DAILY
Tamsulosin [Flomax] 0.4 mg PO DAILY
Tramadol HCl [Ultram] 50 mg PO DAILY
07/18/24 18:00
Enoxaparin Sodium [Lovenox] 40 mg SC QPM
Pravastatin Sodium [Pravachol] 40 mg PO QPM
07/18/24 20:00
Azithromycin 500 mg/250 ml [Zithromax Infusion] 500 mg in 250 ml IV Q24H
07/20/24 11:00
DC Protocol for Telemetry ONCE
Abnormal Lab Results
07/17/24 07/17/24
18:00 19:28
RBC 4.16 L 10^6/uL
(4.70-6.10)
Hgb 11.1 L g/dL
(13.0-18.0)
Hct 36.1 L %
(39.0-52.0)
MCH 26.7 L pg
(27.0-31.0)
MCHC 30.7 L g/dL
(33.0-37.0)
RDW 17.0 H %
(11.5-14.5)
Lymphocytes % 18.5 L %
(20.5-51.1)
Glucose 116 H mg/dl
(70-99)
Lactic Acid 3.2 H mmol/L
(0.7-2.0)
Leukocyte Esterase Rfl Trace A
(Negative)
Urine WBC (Reflex) 50-60 A /HPF
(0-5)
Urine Bacteria (Reflex) Moderate A
(Negative)
07/17/24 18:00
07/17/24 19:28
Vital Signs
Initial and Last Documented VS:
Initial Vital Signs
Temp
101.2 F H
07/17/24 17:39
Last Documented Vital Signs
Temp Pulse Resp BP Pulse Ox
97.4 F 75 14 116/55 95
07/17/24 22:00 07/17/24 22:00 07/17/24 22:00 07/17/24 22:00 07/17/24 22:00
MDM/Problems Addressed
MDM/Problems Addressed:
Left base pneumonia appears to be worsening coupled with patient's profound cough and abnormal lung sounds, will admit for IV antibiotics
*Critical Care Note
Total Time (30-74mins, 75-104mins- exclusive of procedures): Not Applicable
ED Attending Note
-
Portions of this chart may have been created with voice recognition software.� Occasional wrong word or��sound alike� substitutions may have occurred due to the inherent limitations of voice recognition software.
Discharge Plan
Departure
Patient Disposition: Admit
Date of Disposition: 07/17/24
Time of Disposition: 20:15
Admit to: Med/Surg
Presentation/result/management discussed w/ accepting MD/DO: Hospitalist
Discharge Problem:
Pneumonia, Severe sepsis
Interventions
Interventions:
*Risk Screen - Suicide Last Done: 07/17/24 17:39
*General Assessment Last Done: 07/17/24 17:39
*Neglect/Abuse Screening Last Done: 07/17/24 17:39
ED- Fall Risk Assessment Last Done: 07/17/24 21:50
*ED COVID-19 Vaccine History Last Done: 07/17/24 17:46
*Nursing Disposition Last Done: 07/17/24 21:50
ED- Neurological Assessment Last Done: 07/17/24 17:48
ED- Cardiac Assessment Last Done: 07/17/24 17:46
ED Swallowing Screen Last Done: 07/17/24 19:47
Discharge Date and Time
Discharge Date/Time: 07/17/24 21:51
[2024-07-17 18:23] LABS: Lactic Acid 3.2 mmol/L (0.7-2.0)
[2024-07-17 18:36] LABS: Troponin I < 0.012 ng/ml
[2024-07-17 19:19] LABS: COVID-19 Antigen Negative (Negative)
[2024-07-17] MEDS: NSS 1000 IV ×2 (19:29→22:19)
[2024-07-17 19:32] VITALS: BP 116/54
[2024-07-17 19:42] LABS: Urine Albumin Trace (Neg - Trace); Urine Bilirubin Negative (Negative); Urine Character Clear (Clear); Urine Color Yellow; Urine Glucose Negative (Negative); Urine Ketone Negative (Negative); Urine Leukocyte Trace (Negative); Urine Nitrite Negative (Negative); Urine Occult Blood Negative (Negative); Urine Urobilinogen Negative (Neg - 1+); Urine pH 6.5 (5.0-9.0)
[2024-07-17 19:51] LABS: Urine Squamous Cell >30 /LPF (Few)
[2024-07-17 19:52] LABS: Urine Bacteria Moderate (Negative); Urine Mucus Few; Urine Red Blood Cell 0-2 /HPF (0-2); Urine White Cell 50-60 /HPF (0-5)
[2024-07-17 19:53] LABS: Urine Epithelial Cast 0-2 /LPF
[2024-07-17 19:58] LABS: ALT (SGPT) < 10 U/L (0-50); AST (SGOT) 24 U/L (17-59); Albumin 3.7 g/dl (3.5-5.0); Alkaline Phosphatase 87 U/L (38-126); Blood Urea Nitrogen 17 mg/dl (9-20); Calcium 9.2 mg/dl (8.4-10.2); Carbon Dioxide 29 mmol/L (22-30); Chloride 102 mmol/L (98-107); Estimated Creatinine Clearance 42 ml/min; Glucose 116 mg/dl (70-99); Potassium 4.1 mmol/L (3.5-5.1); Sodium 139 mmol/L (135-145); Total Bilirubin 0.4 mg/dl (0.2-1.3); Total Protein 7.3 g/dl (6.3-8.2)
[2024-07-17 20:00] VITALS: BP 115/53
--- NOTE | 2024-07-17 20:20 | HPS.HSE ---
Family Physician
-
Family Physician: Tejas Hernández, DO
Chief Complaint
-
Change in Mental Status
History of Present Illness
Patient is an 84 y/o male past medical history of dementia and schizoaffective disorder who presents from local nursing facility with a change in mental status. Patient was noted to be very lethargy and as responsive at dinner this evening. EMS
was called and he was brought to the emergency department. Upon my evaluation patient is easily arousable and answering questions. He is able to tell me he is at [facility] but is unsure why they sent him here. He has noted cough
recently which he notes is occasionally productive of mucus. He denies shortness of breath. Upon arrival the ED did has a fever 101.2F. He denies abdominal pain, vomiting, diarrhea or dysuria.
Medical History
Past Medical History
Past Medical History: Reports Other
Additional Past Medical History:
Essential Hypertension
Hyperlipidemia
Alzheimer's Dementia
Depression
Schizoaffective Disorder
BPH
Heart Block s/p BiV ICD
Past Surgical History: Reports Other
Additional Past Surgical History:
AICD
Social History
Unable to obtain full social history at this time due to: Dementia
Family History
Family History: Unable to Obtain
Allergies / Home Medications
Allergies reflects when Allergies were last updated in [facility].
Home Medications with original date entered in [facility]
Allergy/Medication List:
Allergies
Allergy/AdvReac Type Severity Reaction Status Date / Time
peanut Allergy Unknown Verified 06/24/24 14:54
Penicillins Allergy Unknown; Verified 06/24/24 14:54
TOLERATES
AMOXICILLIN
AND
PIPERACILLIN/TAZOBACTAM
shellfish derived Allergy Unknown Verified 06/24/24 14:54
Home Medications
acetaminophen 325 mg tablet 650 mg PO Q6HPRN PRN mild pain/temp>100.4 12/01/20
bisacodyl 10 mg rectal suppository (OneLAX Bisacodyl) 10 mg IA DAILYPRN PRN if MOM ineffective 12/01/20
duloxetine 60 mg capsule,delayed release 60 mg PO DAILY Mental health 12/01/20
magnesium hydroxide 400 mg/5 mL oral suspension 30 ml PO [id number] PRN if no bm x 3 days 12/01/20
melatonin 3 mg tablet 6 mg PO HS Sleep 12/01/20
pravastatin 40 mg tablet 40 mg PO QPM High cholesterol 12/01/20
risperidone 0.25 mg tablet 0.25 mg PO DAILY Mental health 12/01/20
tamsulosin 0.4 mg capsule 0.4 mg PO DAILY Urinary issue 12/01/20
tramadol 50 mg tablet 50 mg PO DAILY Pain 12/01/20
lidocaine 5 % topical cream (RectiCare) 1 applic topical Q8HPRN PRN rectal pain 08/03/23
mineral oil-lanolin oil-propylene glycol lotion (Balneol lotion) 1 ea topical DAILY Skin Issues 08/03/23
polyethylene glycol 3350 17 gram oral powder packet (Miralax) 17 g PO DAILY Constipation 08/03/23
sodium phosphates 19 gram-7 gram/118 mL enema (Fleet Enema) 118 ml IA DAILYPRN PRN if dulcolax ineffective 08/03/23
artificial tears(hypromellose) 0.5 % eye drops 1 drp BOTH EYES BID Eye Condition 06/24/24
ferrous sulfate 325 mg (65 mg iron) tablet 325 mg PO DAILY Supplement 06/24/24
methyl salicylate 15 %-menthol 10 % topical cream (Arthritis Hot Pain Relief) 1 applic topical BID bilateral legs 06/24/24
mirtazapine 7.5 mg tablet 7.5 mg PO HS Mental Health/Anxiety 06/24/24
pregabalin 75 mg capsule (Lyrica) 75 mg PO TID Neurological Condition 06/24/24
therapeutic multivitamin 1 tab PO DAILY Supplement 06/24/24
aspirin 81 mg chewable tablet 81 mg PO DAILY 07/17/24
tramadol 50 mg tablet 50 mg PO DAILYPRN PRN chronic pain 07/17/24
Review of Systems
-
Unable to obtain full review of systems at this time due to: Dementia
Physical Exam
Vital Signs
Vital Signs
Temp Pulse Resp BP Pulse Ox
99.0 F 82 13 152/65 93
07/17/24 19:30 07/17/24 19:30 07/17/24 19:30 07/17/24 17:46 07/17/24 19:30
Physical Exam
General: Comfortable and Conversant
HEENT: Anicteric, Moist mucous membranes and Oxygen (Nasal Cannula)
Respiratory: Rhonchi (Diffuse) and Non Labored Respirations
Cardiac: S1/S2 and Regular Rhythm
GI: Soft and Non Tender
Rectal: Deferred by Provider
Musculoskeletal: No Clubbing and No Cyanosis
Skin: Warm and Dry
Neuro: Awake, Alert, Oriented and Nonfocal/grossly intact
Psych: Calm
Laboratory Results
-
07/17/24 18:00
07/17/24 19:28
Laboratory Results
Lactic Acid 3.2 mmol/L (0.7-2.0) H 07/17/24 18:00
Total Bilirubin 0.4 mg/dl (0.2-1.3) 07/17/24 19:28
AST 24 U/L (17-59) 07/17/24 19:28
ALT < 10 U/L (0-50) 07/17/24 19:28
Alkaline Phosphatase 87 U/L (38-126) 07/17/24 19:28
Troponin I < 0.012 ng/ml 07/17/24 18:00
Data Reviewed
-
Lab Data: Labs Reviewed by me
Impression/Plan
-
TME secondary to Pneumonia
-Continue ceftriaxone and azithromycin
-Continue Mucinex
-Trend Lactic Acid level
Hyperlipidemia
-Continue pravastatin
Alzheimer's Dementia
-Monitor for mood/behavior changes during hospitalization
Schizoaffective Disorder
-Continue duloxetine, mirtazapine and risperidone
BPH
-Continue tamsulosin
Hx Heart Block s/p BiV ICD
DVT proph: Lovenox
Code Status: Full Code
--- NOTE | 2024-07-17 20:25 | W.PN.UPDATE ---
Update Note
Progress Note Update
Patient seen conjunction with TOOLING SUPERVISOR, I agree with the findings on history and physical. I concur with the assessment and plan unless stated otherwise.
Briefly, this is a 84-year-old with past medical history significant for CAD, symptomatic bradycardia status post pacemaker placement, schizoaffective disorder depression Alzheimer's and recurrent urinary tract infection who presents to the
emergency department for being altered at the nursing facility. Patient was not responding appropriately and was found to be incontinent of urine. On arrival in the Emergency Department he was febrile. On questioning he endorsed having a
productive cough. He denied abdominal pain, nausea, vomiting, pelvic pain, dysuria. He was oriented to person, place and time.
Temp was 101.2, blood pressure 150/68 and oxygen saturation was 97 on 2L. His chest x-ray shows a left lower lobe consolidation worsened compared to prior. CBC was unremarkable. Electrolytes BUN and creatinine were also within the normal limits.
Lactic acid was elevated at 3.2. UA was positive similar to prior. Influenza was negative, COVID test was negative.
On my exam he had ronchi and some few basilar crackles. Otherwise well appearing.
1. PNA - Fever, cough with a LLL infiltrate,elevated lactate c/w pneumonia. Does have recent hospitalization but mrsa was negative recently and urine cultures in the past have been negative for resistant psuedomonas.
- admit to telemetry
- blood cultures sent
- check resp procal
- IV fluids 1 L overnight
- continue with ceftriaxone/azithromycin
2. AMS - Patient alert and oriented x 3 and answering questions appropriately. Appears to be at baseline. Risk of encephalopathy given infection. + U/A without symptoms
- treat pna as above
- urine cultures
- pt has persistent positive u/a's with incontinence and bph but currently denies dysuria, flank pain. Most recently had E. faecalis tx w/ doxycycline. Monitor cultures, if persistently febrile will add vancomycin
3. Psych
- continue risperidone daily
- continue his mirtazepine and duloxetine
DVT PPX -
Code status - full code
[2024-07-17] MEDS: ROCEPHIN 1000 MG IV ×2 (20:34→22:20)
[2024-07-17] MEDS: ZITHROMAX INFUSION 250 IV (20:35)
[2024-07-17 21:00] VITALS: BP 120/54
[2024-07-17 21:59] LABS: Lactic Acid 1.3 mmol/L (0.7-2.0)
[2024-07-17 22:00] VITALS: BP 116/55; BMI 19.8
[2024-07-17] MEDS: MELATONIN 6 MG PO (22:20)
[2024-07-17] MEDS: REMERON 7.5 MG PO (22:21)
[2024-07-17] MEDS: LYRICA 75 MG PO (22:21)
[2024-07-18 03:00] VITALS: BP 116/57
[2024-07-18 06:00] VITALS: BMI 19.8
[2024-07-18 08:04] VITALS: BP 146/61
[2024-07-18 09:01] LABS: Hematocrit 33.3 % (39.0-52.0); Hemoglobin 10.3 g/dL (13.0-18.0); Mean Corp Hgb Conc. 30.9 g/dL (33.0-37.0); Mean Corpuscular Hgb 26.5 pg (27.0-31.0); Mean Corpuscular Volume 85.6 fL (80.0-94.0); Mean Platelet Volume 9.9 fL (7.4-10.4); Platelet Count 189 10^3/uL (130-400); Red Blood Cell Count 3.89 10^6/uL (4.70-6.10); Red Cell Dist. Width 17.1 % (11.5-14.5); White Blood Cell Count 7.5 10^3/uL (4.8-10.8)
[2024-07-18 09:25] LABS: Blood Urea Nitrogen 13 mg/dl (9-20); Calcium 8.5 mg/dl (8.4-10.2); Carbon Dioxide 27 mmol/L (22-30); Chloride 105 mmol/L (98-107); Estimated Creatinine Clearance 42 ml/min; Glucose 94 mg/dl (70-99); Sodium 141 mmol/L (135-145)
[2024-07-18] MEDS: RISPERDAL 0.25 MG PO (09:39)
[2024-07-18] MEDS: MUCINEX 600 MG PO ×2 (09:39→21:23)
[2024-07-18] MEDS: LOW STRENGTH ASPIRIN 81 MG PO (09:39)
[2024-07-18] MEDS: LYRICA 75 MG PO ×3 (09:39→21:23)
[2024-07-18] MEDS: FLOMAX 0.4 MG PO (09:39)
[2024-07-18] MEDS: MIRALAX 17 GRAMS PO (09:39)
[2024-07-18] MEDS: ULTRAM 50 MG PO (09:39)
[2024-07-18 11:30] VITALS: BP 148/65
--- NOTE | 2024-07-18 11:32 | W.PN.HOSP.TC ---
Today's Communication/Plan
-
Continue with antibiotic
Wean oxygen as tolerated
PT and OT
Assessment / Plan
Assessment / Plan
General: Comfortable and Conversant
HEENT: Anicteric, Moist mucous membranes and Oxygen (Nasal Cannula)
Respiratory: Rhonchi (Diffuse) and Non Labored Respirations
Cardiac: S1/S2 and Regular Rhythm
GI: Soft and Non Tender
Rectal: Deferred by Provider
Musculoskeletal: No Clubbing and No Cyanosis
Skin: Warm and Dry
Neuro: Awake, Alert, Oriented and Nonfocal/grossly intact
Psych: Calm
TME secondary to Pneumonia versus worsening of dementia
Lactic acidosis
Acute hypoxic respiratory insufficiency
-Continue ceftriaxone and azithromycin
-Continue Mucinex
-Lactic acid downtrending with IV fluids. Sputum sample. Strep pneumo Legionella antigen pending. COVID and influenza negative.
-Continue to monitor mentation. Wean oxygen as tolerated
Hyperlipidemia
-Continue pravastatin
Alzheimer's Dementia
-Monitor for mood/behavior changes during hospitalization
-Unclear if with behavioral disturbances or not.
Schizoaffective Disorder
-Continue duloxetine, mirtazapine and risperidone
BPH
-Continue tamsulosin
Hx Heart Block s/p BiV ICD
DVT proph: Lovenox
Code Status: Full Code
No POA listed. CM eval to assess
Anticipated Discharge: > 48 hours
Subjective/Interval History
-
Date of Service: July 18, 2024
states confused this morning
didn't knew he was in hospital
on oxygen
calm otherwise
Objective Data
-
Labs:
Laboratory Results
07/18/24
08:41
WBC 7.5
Hgb 10.3 L
Hct 33.3 L
Plt Count 189
Sodium 141
Potassium 4.0
Chloride 105
Carbon Dioxide 27
BUN 13
Creatinine 1.3
Glucose 94
Calcium 8.5
Vital Signs:
Vital Signs
Temp Pulse Resp BP Pulse Ox
97.8 F 65 17 146/61 94
07/18/24 08:04 07/18/24 08:04 07/18/24 08:04 07/18/24 08:04 07/18/24 08:04
I&O
07/17/24 07/18/24 07/19/24
06:59 06:59 06:59
Intake Total 120 / 120
Balance 120 / 120
Data Reviewed
-
Total Time Spent with Patient (in minutes): 55
[2024-07-18 15:40] VITALS: BP 153/69
[2024-07-18] MEDS: PRAVACHOL 40 MG PO (17:43)
[2024-07-18] MEDS: LOVENOX 40 MG SC (17:43)
[2024-07-18 19:00] VITALS: BP 153/79
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
[2024-07-18] MEDS: REMERON 7.5 MG PO (21:23)
[2024-07-18] MEDS: MELATONIN 6 MG PO (21:23)
[2024-07-18] MEDS: STERILE WATER FOR INJECTION 10 ML IV (21:24)
[2024-07-18] MEDS: ROCEPHIN 1000 MG IV (21:24)
[2024-07-18] MEDS: ZITHROMAX INFUSION 250 IV (21:24)
[2024-07-18 23:00] VITALS: BP 118/65
[2024-07-18] MEDS: TYLENOL 650 MG PO (23:16)
[2024-07-19] VITALS (7 sets, daily range): BP systolic 95–168; BP diastolic 49–74; PULSE 82–95; O2SAT 95; BMI 19.9
--- NOTE | 2024-07-19 00:41 | PTCARENOTE ---
Noted patient HR on monitor technician to be 90-100s. Patient with pacer/AICD, 100% v-paced rhythm but still tachy. Pacer spikes appear to be unusual looking as well. JOSE MARIA River on unit at this time, discussed findings together as patient is here
with pneumonia, no interrogation performed on pacer this admission. No new interventions at this time, will continue to monitor.
[2024-07-19 06:55] LABS: % Basophils 0.5 % (0-2); % Eosinophils 2.6 % (0-6); % Immature Granulocytes 0.3 % (0-0.5); % Lymphocytes 26.5 % (20.5-51.1); % Monocytes 8.8 % (1.7-9.3); % Neutrophils 61.3 % (42.2-75.2); Absolute Eosinophils 0.2 10^3/uL (0-0.7); Absolute Lymphocytes 2.3 10^3/uL (1.2-3.4); Absolute Monocytes 0.8 10^3/uL (0.1-0.6); Absolute Neutrophils 5.4 10^3/uL (1.4-6.5); Hematocrit 29.8 % (39.0-52.0); Hemoglobin 9.6 g/dL (13.0-18.0); Mean Corp Hgb Conc. 32.2 g/dL (33.0-37.0); Mean Corpuscular Hgb 26.6 pg (27.0-31.0); Mean Corpuscular Volume 82.5 fL (80.0-94.0); Mean Platelet Volume 10.2 fL (7.4-10.4); Nucleated Red Blood Cells % 0 % (-); Platelet Count 186 10^3/uL (130-400); Red Blood Cell Count 3.61 10^6/uL (4.70-6.10); Red Cell Dist. Width 16.4 % (11.5-14.5); White Blood Cell Count 8.8 10^3/uL (4.8-10.8)
[2024-07-19 07:36] LABS: Blood Urea Nitrogen 14 mg/dl (9-20); Calcium 8.4 mg/dl (8.4-10.2); Carbon Dioxide 26 mmol/L (22-30); Chloride 105 mmol/L (98-107); Estimated Creatinine Clearance 46 ml/min; Glucose 96 mg/dl (70-99); Potassium 3.8 mmol/L (3.5-5.1); Sodium 140 mmol/L (135-145); eGFR 58.89
[2024-07-19] MEDS: ULTRAM 50 MG PO (11:34)
[2024-07-19] MEDS: MIRALAX 17 GRAMS PO (11:34)
[2024-07-19] MEDS: FLOMAX 0.4 MG PO (11:34)
[2024-07-19] MEDS: MUCINEX 600 MG PO ×2 (11:34→20:12)
[2024-07-19] MEDS: LOW STRENGTH ASPIRIN 81 MG PO (11:34)
[2024-07-19] MEDS: RISPERDAL 0.25 MG PO (11:35)
[2024-07-19] MEDS: LYRICA 75 MG PO ×3 (11:38→22:00)
--- NOTE | 2024-07-19 12:09 | W.PN.HOSP.TC ---
Today's Communication/Plan
-
Trend fever curve
IV abx
PT/OT
CM
anemia panel
Assessment / Plan
Assessment / Plan
General: Comfortable and Conversant
HEENT: Anicteric, Moist mucous membranes and Oxygen (Nasal Cannula)
Respiratory: Rhonchi (Diffuse) and Non Labored Respirations
Cardiac: S1/S2 and Regular Rhythm
GI: Soft and Non Tender
Rectal: Deferred by Provider
Musculoskeletal: No Clubbing and No Cyanosis
Skin: Warm and Dry
Neuro: Awake, Alert, Oriented and Nonfocal/grossly intact
Psych: Calm
TME secondary to Pneumonia versus worsening of dementia
Lactic acidosis
Acute hypoxic respiratory insufficiency
-Continue ceftriaxone and azithromycin
-Continue Mucinex
-Lactic acid downtrending with IV fluids. Sputum sample. Strep pneumo Legionella antigen neg. COVID and influenza negative.
-Blood culture neg. Ucx negative
-Continue to monitor mentation. Wean oxygen as tolerated.
Hyperlipidemia
-Continue pravastatin
Alzheimer's Dementia
-Monitor for mood/behavior changes during hospitalization
-Unclear if with behavioral disturbances or not.
Schizoaffective Disorder
-Continue duloxetine, mirtazapine and risperidone
BPH
-Continue tamsulosin
Anemia normocytic
-check anemia panel.
-no rony luminal bleeding noted
Hx Heart Block s/p BiV ICD
DVT proph: Lovenox
Code Status: Full Code
No POA listed. CM eval to assess
PT/OT
Anticipated Discharge: 24 - 48 hours
Subjective/Interval History
-
Date of Service: July 19, 2024
spiked fever overnight
on room air
awaiting for breakfast
states has no family member and did not want me to call anyone to update.
Objective Data
-
Labs:
Laboratory Results
07/19/24
05:18
WBC 8.8
Hgb 9.6 L
Hct 29.8 L
Plt Count 186
Sodium 140
Potassium 3.8
Chloride 105
Carbon Dioxide 26
BUN 14
Creatinine 1.2
Glucose 96
Calcium 8.4
Vital Signs:
Vital Signs
Temp Pulse Resp BP Pulse Ox
98.5 F 78 16 120/58 99
07/19/24 11:00 07/19/24 11:00 07/19/24 11:00 07/19/24 11:00 07/19/24 11:00
I&O
07/18/24 07/19/24 07/20/24
06:59 06:59 06:59
Intake Total 120 / 120 1010 / 1010
Balance 120 / 120 1010 / 1010
Data Reviewed
-
Total Time Spent with Patient (in minutes): 55
[2024-07-19 14:31] LABS: Iron 30 ug/dl (49-181)
[2024-07-19 14:40] LABS: Percent Saturation 13 % (20-50); Total Iron Binding Capacity 230 ug/dl (261-462)
[2024-07-19 16:25] LABS: Folate 5.4 ng/ml (2.76-20); Vitamin B12 518 pg/ml (239-931)
[2024-07-19] MEDS: PRAVACHOL 40 MG PO (17:13)
[2024-07-19] MEDS: LOVENOX 40 MG SC (17:13)
--- NOTE | 2024-07-19 18:00 | PTCARENOTE ---
Pt is now in room 319-1. Worked with PT during shift and OOB to chair, tolerating it well. Call alberto within reach.
[2024-07-19] MEDS: ZITHROMAX INFUSION 250 IV (20:12)
[2024-07-19] MEDS: REMERON 7.5 MG PO (22:00)
[2024-07-19] MEDS: MELATONIN 6 MG PO (22:00)
[2024-07-19] MEDS: ROCEPHIN 1000 MG IV (22:02)
[2024-07-19] MEDS: STERILE WATER FOR INJECTION 10 ML IV (22:03)
[2024-07-20 03:00] VITALS: BP 141/71
[2024-07-20 04:51] VITALS: BMI 19.8
[2024-07-20 07:26] LABS: % Basophils 0.8 % (0-2); % Eosinophils 6.8 % (0-6); % Immature Granulocytes 0.2 % (0-0.5); % Lymphocytes 44.1 % (20.5-51.1); % Monocytes 8.6 % (1.7-9.3); % Neutrophils 39.5 % (42.2-75.2); Absolute Eosinophils 0.4 10^3/uL (0-0.7); Absolute Lymphocytes 2.4 10^3/uL (1.2-3.4); Absolute Monocytes 0.5 10^3/uL (0.1-0.6); Absolute Neutrophils 2.1 10^3/uL (1.4-6.5); Hematocrit 30.5 % (39.0-52.0); Mean Corp Hgb Conc. 32.8 g/dL (33.0-37.0); Mean Corpuscular Hgb 26.5 pg (27.0-31.0); Mean Corpuscular Volume 80.7 fL (80.0-94.0); Mean Platelet Volume 10.8 fL (7.4-10.4); Nucleated Red Blood Cells % 0 % (-); Platelet Count 170 10^3/uL (130-400); Red Blood Cell Count 3.78 10^6/uL (4.70-6.10); Red Cell Dist. Width 16.3 % (11.5-14.5); White Blood Cell Count 5.3 10^3/uL (4.8-10.8)
[2024-07-20 07:35] VITALS: BP 151/68
--- NOTE | 2024-07-20 08:03 | W.PN.HOSP.TC ---
Today's Communication/Plan
-
dc to snf
po abx
Assessment / Plan
Assessment / Plan
General: Comfortable and Conversant
HEENT: Anicteric, Moist mucous membranes and on room air
Respiratory: dec bs. no wheezing and Non Labored Respirations
Cardiac: S1/S2 and Regular Rhythm
GI: Soft and Non Tender
Rectal: Deferred by Provider
Musculoskeletal: No Clubbing and No Cyanosis
Skin: Warm and Dry
Neuro: Awake, Alert, Oriented and Nonfocal/grossly intact
Psych: Calm
TME secondary to Pneumonia versus worsening of dementia
Lactic acidosis
Acute hypoxic respiratory insufficiency
-Continue ceftriaxone and azithromycin-po abx on dc
-Continue Mucinex
-Lactic acid downtrending with IV fluids. Sputum sample. Strep pneumo Legionella antigen neg. COVID and influenza negative.
-Blood culture neg. Ucx negative
-Continue to monitor mentation. Wean oxygen as tolerated. on room air. afebrile for 24h. on room air.
Hyperlipidemia
-Continue pravastatin
Alzheimer's Dementia
-Monitor for mood/behavior changes during hospitalization
-Unclear if with behavioral disturbances or not.
Schizoaffective Disorder
-Continue duloxetine, mirtazapine and risperidone
BPH
-Continue tamsulosin
Anemia normocytic
-check anemia panel.
-start po iron on dc.
Hx Heart Block s/p BiV ICD
DVT proph: Lovenox
Code Status: Full Code
No POA listed. CM eval to assess
PT/OT-back to [facility].
More than 30 minutes spent in discharge including
Final examination of the patient
Summarizing hospital stay
Instructions for continuing care to all relevant caregivers
Preparation of discharge records, prescriptions, and referral forms
Total time spent (in minutes): 55
Anticipated Discharge: Today
Subjective/Interval History
-
Date of Service: July 20, 2024
afebrile
denies chest pain or cough
eating breakfast
Objective Data
-
Labs:
Laboratory Results
07/20/24
06:49
WBC 5.3
Hgb 10.0 L
Hct 30.5 L
Plt Count 170
Sodium Pending
Potassium Pending
Chloride Pending
Carbon Dioxide Pending
BUN Pending
Creatinine Pending
Glucose Pending
Calcium Pending
Vital Signs:
Vital Signs
Temp Pulse Resp BP Pulse Ox
97.9 F 81 18 151/68 95
07/20/24 07:35 07/20/24 07:35 07/20/24 07:35 07/20/24 07:35 07/20/24 07:35
I&O
07/19/24 07/20/24 07/21/24
06:59 06:59 06:59
Intake Total 1010 / 1010 240 / 240
Balance 1010 / 1010 240 / 240
[2024-07-20] MEDS: MUCINEX 600 MG PO (08:05)
[2024-07-20] MEDS: LYRICA 75 MG PO ×2 (08:05→15:43)
[2024-07-20] MEDS: RISPERDAL 0.25 MG PO (08:05)
[2024-07-20] MEDS: MIRALAX 17 GRAMS PO (08:05)
[2024-07-20] MEDS: FLOMAX 0.4 MG PO (08:05)
[2024-07-20] MEDS: ULTRAM 50 MG PO (08:05)
[2024-07-20] MEDS: LOW STRENGTH ASPIRIN 81 MG PO (08:05)
[2024-07-20 08:19] LABS: Blood Urea Nitrogen 13 mg/dl (9-20); Calcium 8.9 mg/dl (8.4-10.2); Carbon Dioxide 21 mmol/L (22-30); Chloride 108 mmol/L (98-107); Estimated Creatinine Clearance 46 ml/min; Glucose 96 mg/dl (70-99); Potassium 3.7 mmol/L (3.5-5.1); Sodium 139 mmol/L (135-145); eGFR 58.89
--- NOTE | 2024-07-20 10:46 | W.DCSUMMARY ---
Discharge Summary
Discharge Data
Date of Admission: 07/17/24
Date of Discharge: 07/20/24
-
Pending Results: No
Hospital Course
84-year-old male past medical history of schizoaffective disorder, Alzheimer dementia, BPH, anemia, heart block status post BiV ICD, insomnia [facility] Patient was also found to acute hypoxic
respiratory insufficiency. Patient had lactic acidosis which resolved with IV fluid patient was found to have a pneumonia and was started on IV ceftriaxone azithromycin. Antibiotics were transitioned to p.o. Patient was transitioned to p.o.
antibiotics on discharge. Patient was unable to provide sputum sample. Strep pneumo and Legionella antigen was negative. COVID influenza was negative. Blood cultures remain negative. Patient was weaned off oxygen. Patient was tolerating diet
without any difficulty. Patient mentation back to baseline. Patient was eager to return to [facility].
Discharge Plan
-
Patient Disposition: Shelter/SNF
Discharge Diagnosis/Procedures: TME secondary to Pneumonia versus worsening of dementia
Lactic acidosis
Acute hypoxic respiratory insufficiency
Condition: Fair
Diet: As tolerated
Activity: With assistance and As tolerated
Driving Restrictions: No driving
Referrals:
Tejas Hernández, [Family Provider] -
Prescriptions:
New
cefdinir 300 mg capsule
300 mg PO BID Qty: 4 0RF
azithromycin 250 mg tablet
250 mg PO DAILY 2 Days Qty: 2 0RF
Continued
acetaminophen 325 MG tablet
650 mg PO Q6HPRN PRN (Reason: mild pain/temp>100.4)
pravastatin 40 MG tablet
40 mg PO QPM
risperidone 0.25 MG tablet
0.25 mg PO DAILY
melatonin 3 MG tablet
6 mg PO HS
tramadol 50 MG tablet
50 mg PO DAILY
magnesium hydroxide 30 ML suspension
30 ml PO C18HRMG PRN (Reason: if no bm x 3 days)
tamsulosin 0.4 MG capsule
0.4 mg PO DAILY
bisacodyl [OneLAX Bisacodyl] 10 MG suppository
10 mg NM DAILYPRN PRN (Reason: if MOM ineffective)
duloxetine 60 MG capsule,delayed release(DR/EC)
60 mg PO DAILY
polyethylene glycol 3350 [Miralax] 17 gram Powder In Packet
17 g PO DAILY
lidocaine [RectiCare] 5 % Cream
1 applic TOPICAL Q8HPRN PRN (Reason: rectal pain)
Rx Instructions:
anus
Fleet Enema 19-7 gram/118 mL Enema
118 ml NM DAILYPRN PRN (Reason: if dulcolax ineffective)
Balneol Lotion
1 ea TOPICAL DAILY
Rx Instructions:
anus
therapeutic multivitamin Tablet
1 tab PO DAILY
ferrous sulfate 325 mg (65 mg iron) Tablet
325 mg PO DAILY
artificial tears(hypromellose) 0.5 % Drops
1 drp BOTH EYES BID
mirtazapine 7.5 mg Tablet
7.5 mg PO HS
pregabalin [Lyrica] 75 mg Capsule
75 mg PO TID
Arthritis Hot Pain Relief 15-10 % Cream
1 applic TOPICAL BID
tramadol 50 mg Tablet
50 mg PO DAILYPRN PRN (Reason: chronic pain)
Patient Comments:
07/17/24: Minimum 8 hour separation from routine dose
aspirin 81 mg Tablet,Chewable
81 mg PO DAILY
Discharge Orders:
Discharge Patient (As Directed); Ordered 07/20/24
Ordered By: Donn Gonzalez
Discharge Date and Time
Print Language: [place]
[2024-07-20 11:20] VITALS: BP 101/62
--- NOTE | 2024-07-20 14:20 | CM ---
Received notification from RN that patient is medically cleared for discharge. Placed a call to Krystin in admissions at [facility] who stated that patient receives OT 4x6 times a week and self care retraining. Patient primarily in w/c. He is set up
to eat and perform personal care. Patient is a bed hold. Reviewed PT. Krystin confirmed that patient can come back today.
# For report [phone] 3rd floor
#For fax [phone]
Will set up transfer sheet and medical necessity for [facility] community director
Plan: Case management will continue to follow and assist with discharge planning. Back to [facility]
[2024-07-20] MEDS: FERRLECIT 110 MG IV (14:30)
[2024-07-20 15:06] VITALS: BP 148/71
[2024-07-20 19:00] VITALS: BP 144/72
== END 2024-07-20 19:30 | DRG 193 ==
LOC: 3 WEST ACU 21:13
PROVIDERS: Physician Assistant; Physician Assistant Medical; ADMITTING PHYSICIAN Internal Medicine; ATTENDING PHYSICIAN Hospitalist; EMERGENCY PHYSICIAN Student in an Organized Health Care Education/Training Program; FAMILY PHYSICIAN Internal Medicine
DX: J18.9 Pneumonia, unspecified organism (principal); G92.8 Other toxic encephalopathy; F02.83 Dementia in other diseases classified elsewhere, unspecified severity, with mood disturbance; E87.20 Acidosis, unspecified; F32.A Depression, unspecified; G30.9 Alzheimer's disease, unspecified; R09.02 Hypoxemia; R06.89 Other abnormalities of breathing; Z11.52 Encounter for screening for COVID-19; E78.00 Pure hypercholesterolemia, unspecified; F25.9 Schizoaffective disorder, unspecified; N40.0 Benign prostatic hyperplasia without lower urinary tract symptoms; Z95.0 Presence of cardiac pacemaker
CPT/HCPCS: 71046; 80048; 80053; 81003; 81015; 82607; 82728; 82746; 83540; 83550; 83605; 84484; 85025; 85027; 87040; 87070; 87086; 87449; 87502; 87811; 87899; 93005; 96361; 96365; 96375; 97163; 99285; J2916